=== PATIENT | female | born 1985 | race Caucasian/White ===

== ENCOUNTER 2017-04-16 12:26 | Emergency (ER) | payer OTHER ==
[2017-04-16 12:32] VITALS: BP 153/94; PULSE 69; RESP 18; TEMP 97.8
--- NOTE | 2017-04-16 12:45 | ED ---
General Adult HPI - General Chief complaint: Extremity Injury, Upper Stated complaint: Injury Time Seen by Provider: 04/16/17 12:35 Source: patient, RN notes reviewed Mode of arrival: ambulatory Limitations: no limitations - History of Present Illness Initial comments: Patient 31-year-old female who presents emergency room today with multiple complaints. Patient does admit that she has been experiencing some neck pain rated on the left side radiating towards left shoulder over the last week. She states she woke up like this. States she's been trying Tylenol/ibuprofen with little relief the symptoms. She also admits that she has noticed that her blood pressure is been somewhat elevated ranging from systolic of 1:30 to 140 with a diastolic in the 90s. Patient does also admit that she's noticed her heart beat has been low at times and she has been bradycardic down into the 40s. States this is new for her. She denies any lightheadedness or dizziness. She denies any other complaints or associated symptoms. Patient does admit that the neck pain is worse with movements but denies any injury or trauma. Patient denies any recent fever, chills, shortness of breath, chest pain, back pain, abdominal pain, nausea or vomiting, numbness or tingling, dysuria or hematuria, constipation or diarrhea, headaches or visual changes, or any other complaints. - Related Data Home Medications Medication Instructions Recorded Confirmed Omp-Tzzs-Gaatu Acid 1 tab PO DAILY 09/25/14 12/09/15 [-U Capsule] Sertraline HCl [Zoloft] 100 mg PO DAILY 09/25/14 12/09/15 Acetaminophen [Tylenol] 325 mg PO Q4H 12/08/15 12/09/15 Previous Rx's Medication Instructions Recorded Cyclobenzaprine [Flexeril] 10 mg PO TID #20 tab 04/16/17 Allergies Allergy/AdvReac Type Severity Reaction Status Date / Time rizatriptan benzoate Allergy Unknown Verified 04/16/17 12:32 [From [facility]] Review of Systems ROS Statement: Those systems with pertinent positive or pertinent negative responses have been documented in the HPI. ROS Other: All systems not noted in ROS Statement are negative. Past Medical History Past Medical History: No Reported History Additional Past Medical History / Comment(s): depression History of Any Multi-Drug Resistant Organisms: None Reported Past Surgical History: No Surgical Hx Reported Additional Past Surgical History / Comment(s): LEEP procedure Past Anesthesia/Blood Transfusion Reactions: No Reported Reaction Past Psychological History: Anxiety, Depression, Panic Disorder Smoking Status: Never smoker Past Alcohol Use History: Occasional Past Drug Use History: None Reported General Exam - General Exam Comments Initial Comments: General: The patient is awake and alert, in no distress, and does not appear acutely ill. Eye: Pupils are equal, round and reactive to light, extra-ocular movements are intact. No nystagmus. There is normal conjunctiva bilaterally. No signs of icterus. Ears, nose, mouth and throat: There are moist mucous membranes and no oral lesions. Neck: The neck is supple. Patient does have some tenderness of cervical spine no step-offs forms appreciated. Mild tenderness midline with increased tenderness paravertebrally on the left and over the sternocleidomastoid. Pain reproduced with rotation to the left exacerbating her pain. No bony tenderness to the left shoulder. Mild tenderness to the trapezius. Cardiovascular: There is a regular rate and rhythm. No murmur, rub or gallop is appreciated. Respiratory: Lungs are clear to auscultation, respirations are non-labored, breath sounds are equal. No wheezes, stridor, rales, or rhonchi. Musculoskeletal: Normal ROM, no tenderness. Strength 5/5. Sensation intact. Pulses equal bilaterally 2+. Neurological: A&O x 3. CN II-XII intact, There are no obvious motor or sensory deficits. Coordination appears grossly intact. Speech is normal. Skin: Skin is warm and dry and no rashes or lesions are noted. Psychiatric: Cooperative, appropriate mood & affect, normal judgment. Limitations: no limitations Course Vital Signs 04/16/17 12:29 Temperature 97.8 F Pulse Rate 69 Respiratory 18 Rate Blood Pressure 153/94 O2 Sat by Pulse 100 Oximetry EKG Findings - EKG Comments: EKG Findings:: EKG performed at 1244: Shows sinus bradycardia 58 bpm. KS interval 142. QRS 82. QT/QTc 406/398. No acute ST changes. Medical Decision Making - Medical Decision Making Case discussed in detail with attending physician Dr. De Dios. Patient reexamined at this time shows no signs of distress. Patient's EKG reviewed and does show a normal sinus rhythm with bradycardia at 58 bpm. No other acute abnormalities. Patient advised to follow-up with family doctor and also cardiology. Advised patient that neck pain is musculoskeletal in nature to use ibuprofen/Tylenol for pain along with muscle relaxant. Advised patient that most indicated drowsy. Patient will be discharged home advised to follow-up with family doctor in the next 1-2 days. Advised return if any symptoms increase or worsen. She states understanding and is in agreement. Disposition Clinical Impression: Cervical strain, acute, Bradycardia Disposition: HOME SELF-CARE Condition: Good Instructions: Spasmodic Torticollis (ED) Additional Instructions: Please to new Tylenol/ibuprofen for pain. Please use muscle laxer as prescribed. Rather may make you drowsy. Please follow-up with cardiology/ family doctor in the next 2 days of symptoms have not improved. Please return to emergency room if the symptoms increase or worsen or for any other concerns. Prescriptions: Cyclobenzaprine [Flexeril] 10 mg PO TID #20 tab Referrals: Lanre Morgan DO [Primary Care Provider] - 1-2 days Time of Disposition: 12:57
== END 2017-04-16 13:00 | disposition home or self-care (01) ==
LOC: EC 12:26
DX: S16.1XXA Strain of muscle, fascia and tendon at neck level, initial encounter (principal); R00.1 Bradycardia, unspecified; F32.9 Major depressive disorder, single episode, unspecified; Z88.8 Allergy status to other drugs, medicaments and biological substances; Z79.899 Other long term (current) drug therapy; X58.XXXA Exposure to other specified factors, initial encounter
CPT/HCPCS: 93005; 99283

== ENCOUNTER → 2017-04-18 | Outpatient (CLI) | payer OTHER ==
--- NOTE | 2017-04-19 12:02 | XR ---
Cervical spine HISTORY: Neck pain 5 views of the cervical spine Correlation to prior exam 07/11/2012 There is reversal the normal cervical lordosis. Cervical vertebral bodies show preserved height, alig nment, and bone mineralization. Disc spaces and prevertebral soft tissues are normal. No significant foraminal encroachment. IMPRESSION: Reversal of cervical lordosis could be due to muscle spasm.
== END ==
LOC: RADXRMAIN 17:18
PROVIDERS: ATTEND Family Medicine
DX: M54.2 Cervicalgia (principal)
CPT/HCPCS: 72050

== ENCOUNTER → 2018-05-24 | Outpatient (CLI) | payer OTHER | END | disposition home or self-care (01) | LOC: LABMAIN 22:15 | PROVIDERS: ATTEND Family Medicine | DX: R19.7 Diarrhea, unspecified (principal) | CPT/HCPCS: 87045; 87046; 87324; 87328; 87329 ==

== ENCOUNTER → 2018-09-16 | Outpatient (CLI) | payer OTHER ==
--- NOTE | 2018-09-17 14:00 | XR ---
Bilateral knees HISTORY: Pain 4 views of each knee submitted on a total of 8 images Joint space loss present in the medial compartments. Alignment and bone mineralization are maintained . IMPRESSION: Mild osteoarthritis is suspected, MRI may be of benefit.
--- NOTE | 2018-09-17 17:12 | MR ---
EXAMINATION TYPE: MR brain wo/w con DATE OF EXAM: 09/16/2018 COMPARISON: CT brain 08/23/2018 HISTORY: Dizziness, F/U on pineal cyst TECHNIQUE: Multiplanar, multisequence images of the brain and brainstem is performed without and with IV contras t, utilizing 7.5 mL intravenous Gadavist . FINDINGS: Diffusion weighted images demonstrate no evidence of a recent infarct or other diffusion ab normality. There is no extra-axial fluid collection or significant white matter signal abnormality. The ventricular system and cisternal spaces are normal in size and appearance. The brain volume is age appropriate. Midline structures demonstrate normal morphology with exception of patient's known pineal cyst measur ing approximately 13 x 11 x 7 mm. In some minimal peripheral enhancement, central intermediate signal on T1, high signal on T2 and inversion recovery sequences within the cyst.. The craniocervical junc tion appears within normal limits. Post contrast images demonstrate no abnormal enhancement. The dur al venous sinuses appear patent. The visualized sinuses are clear and the globes are intact. 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
== END | disposition home or self-care (01) ==
LOC: RADMRIMAIN 13:43
PROVIDERS: ATTEND Family Medicine
DX: D35.4 Benign neoplasm of pineal gland (principal); M25.561 Pain in right knee; M25.562 Pain in left knee
CPT/HCPCS: 73560; 70553; A9585

== ENCOUNTER → 2019-09-25 | Outpatient (CLI) | payer OTHER ==
[2019-09-25 11:05] LABS: Basophils # (A) 0.1 k/uL (0-0.2); Basophils % (A) 2 %; Eosinophils # (A) 0.2 k/uL (0-0.7); Eosinophils % (A) 3 %; HCT 40.5 % (34.0-46.0); HGB 13.4 gm/dL (11.4-16.0); Lymphocytes # (A) 2.2 k/uL (1.0-4.8); Lymphocytes % (A) 31 %; MCH 29.8 pg (25.0-35.0); MCV 90.4 fL (80.0-100.0); Mean Platelet Volume 7.2; Monocytes # (A) 0.4 k/uL (0-1.0); Monocytes % (A) 6 %; Neutrophils % (A) 56 %; Platelet Count 281 k/uL (150-450); RBC 4.48 m/uL (3.80-5.40); RDW 12.3 % (11.5-15.5); WBC 7.1 k/uL (3.8-10.6)
--- NOTE | 2019-09-25 13:43 | XR ---
EXAMINATION TYPE: XR chest 2V DATE OF EXAM: 09/25/2019 COMPARISON: Prior chest x-ray 09/25/2014 HISTORY: J 18.9 TECHNIQUE: Frontal and lateral views of the chest are obtained. FINDINGS: There is no focal air space opacity, pleural effusion, or pneumothorax seen. The cardiac silhouette size is within normal limits. The osseous structures are intact. IMPRESSION: No acute cardiopulmonary process.
[2019-09-25 17:08] LABS: African American GFR (CKD) 131.9 (60.0-200.0); Albumin 4.1 g/dL (3.80-4.90); Albumin/Globulin Ratio 2.28 (1.60-3.17); Anion Gap 6.7 mmol/L (4.00-12.00); BUN/Creat Ratio 24.29 Ratio (12.00-20.00); Carbon Dioxide 26.3 mmol/L (21.6-31.8); Chol/HDL Ratio 3.19; Globulin 1.8 g/dL (1.6-3.3); LDL Cholesterol,Calculated 77.6 mg/dL (0.0-131.0); Non-African American GFR(CKD) 113.8 (60.0-200.0); Potassium 4.3 mmol/L (3.5-5.5); Total Bilirubin 0.2 mg/dL (0.2-1.2); Total Protein 5.9 g/dL (6.2-8.2); VLDL Calculation 14.4 mg/dL (5.00-40.00)
== END | disposition home or self-care (01) ==
LOC: LABWHC1 09:50
PROVIDERS: ATTEND Family Medicine
DX: Z00.00 Encounter for general adult medical examination without abnormal findings (principal); J18.9 Pneumonia, unspecified organism
CPT/HCPCS: 36415; 71046; 80053; 80061; 85025

== ENCOUNTER 2019-10-02 12:05 | Emergency (ER) | payer OTHER ==
[2019-10-02 12:10] VITALS: TEMP 98
[2019-10-02] MEDS ORDERED: SODIUM CHLORIDE 0.9% 500 ML 500 ML IV ONE (12:22)
--- NOTE | 2019-10-02 12:41 | ED ---
General Adult HPI - General Chief complaint: Recheck/Abnormal Lab/Rx Stated complaint: elevate BP Time Seen by Provider: 10/02/19 12:11 Source: patient, RN notes reviewed, old records reviewed Mode of arrival: ambulatory Limitations: no limitations - History of Present Illness Initial comments: 34-year-old female presents for evaluation of hypertension. Patient has been using a home blood pressure cuff to monitor her blood pressure over the past week. She's had some readings in the 140s systolic and 90s diastolic. She' went to her primary care office today to have a formal blood pressure measurement. She was told that it was also somewhat elevated and that she should seek medical attention at the emergency department. She was not seen by a provider at the office. She denies headache. Denies focal numbness or weakness. Denies central radiating chest pain. She's had a vague minimal left upper chest pain for many months, and his had intermittent chest pain for years she's had a stress test in 2013 and she is scheduled for a stress test on of this week. Denies diaphoresis. Denies abdominal pain. No fever. - Related Data Home Medications Medication Instructions Recorded Confirmed Aspirin/Acetaminophen/Caffeine 2 tab PO BID PRN 08/23/18 08/23/18 [Excedrin Migraine Caplet] Dextroamphetamine/Amphetamine 30 mg PO DAILY 08/23/18 08/23/18 [Adderall] Fesoterodine Fumarate [Toviaz] 4 mg PO DAILY 08/23/18 08/23/18 LORazepam [Ativan] 0.5 mg PO TID PRN 08/23/18 08/23/18 Phenazopyridine 97.5 mg PO DAILY PRN 08/23/18 08/23/18 Allergies Allergy/AdvReac Type Severity Reaction Status Date / Time rizatriptan benzoate AdvReac AGGRESSIVE Verified 08/23/18 09:11 [From [facility]] Review of Systems ROS Statement: Those systems with pertinent positive or pertinent negative responses have been documented in the HPI. ROS Other: All systems not noted in ROS Statement are negative. Past Medical History Past Medical History: No Reported History Additional Past Medical History / Comment(s): depression History of Any Multi-Drug Resistant Organisms: None Reported Past Surgical History: Tubal Ligation Additional Past Surgical History / Comment(s): LEEP procedure Past Anesthesia/Blood Transfusion Reactions: No Reported Reaction Past Psychological History: Anxiety, Depression, Panic Disorder Smoking Status: Former smoker Past Alcohol Use History: Occasional Past Drug Use History: Marijuana General Exam Limitations: no limitations General appearance: alert, in no apparent distress Head exam: Present: atraumatic, normocephalic Eye exam: Present: normal appearance, PERRL ENT exam: Present: normal exam Neck exam: Present: normal inspection. Absent: tenderness, meningismus Respiratory exam: Present: normal lung sounds bilaterally. Absent: respiratory distress, wheezes, rales Cardiovascular Exam: Present: regular rate, normal rhythm GI/Abdominal exam: Present: soft. Absent: distended, tenderness, guarding Extremities exam: Present: normal inspection, normal capillary refill. Absent: pedal edema Back exam: Present: normal inspection Neurological exam: Present: alert, oriented X3, CN II-XII intact. Absent: motor sensory deficit Psychiatric exam: Present: normal affect, normal mood Skin exam: Present: warm, dry, intact. Absent: cyanosis, diaphoretic Course Vital Signs 10/02/19 10/02/19 10/02/19 12:07 12:33 13:35 Temperature 98.0 F Pulse Rate 89 85 Pulse Rate [ 80 Atmospheric Physicist ] Respiratory 18 16 Rate Blood Pressure 156/96 127/95 O2 Sat by Pulse 98 98 Oximetry EKG Findings - EKG Comments: EKG Findings:: EKG: Normal sinus rhythm, rate of 82, W[place] interval 150, QRS duration 82, QTC 399, no ST segment elevation or depression Medical Decision Making - Medical Decision Making 34-year-old female presenting with elevated blood pressure. Initial blood pressure is elevated. Patient has a vague left-sided chest discomfort not really chest pain. His been present for at least a week and intermittently for several years. She has a scheduled outpatient appointment for stress test on of this week. Blood pressure is down trending without treatment in the emergency department. She will continue to monitor blood pressure at home she will follow-up with her primary care physician regarding long-term treatment of hypertension. CBC, CMP, troponin are within normal limits. - Lab Data Result diagrams: 10/02/19 12:35 10/02/19 12:35 Lab Results 10/02/19 10/02/19 10/02/19 Range/Units 12:35 12:35 12:35 WBC 7.6 (3.8-10.6) k/uL RBC 4.75 (3.80-5.40) m/uL Hgb 14.3 (11.4-16.0) gm/dL Hct 41.3 (34.0-46.0) % MCV 86.9 (80.0-100.0) fL MCH 30.0 (25.0-35.0) pg MCHC 34.5 (31.0-37.0) g/dL RDW 12.7 (11.5-15.5) % Plt Count 316 (150-450) k/uL Neutrophils % 53 % Lymphocytes % 37 % Monocytes % 5 % Eosinophils % 2 % Basophils % 1 % Neutrophils # 4.0 (1.3-7.7) k/uL Lymphocytes # 2.8 (1.0-4.8) k/uL Monocytes # 0.4 (0-1.0) k/uL Eosinophils # 0.2 (0-0.7) k/uL Basophils # 0.0 (0-0.2) k/uL Sodium 140 (137-145) mmol/L Potassium 4.1 (3.5-5.1) mmol/L Chloride 106 (98-107) mmol/L Carbon Dioxide 25 (22-30) mmol/L Anion Gap 9 mmol/L BUN 13 (7-17) mg/dL Creatinine 0.62 (0.52-1.04) mg/dL Est GFR (CKD-EPI)AfAm >90 (>60 ml/min/1.73 sqM) Est GFR (CKD-EPI)NonAf >90 (>60 ml/min/1.73 sqM) Glucose 90 (74-99) mg/dL Calcium 10.0 (8.4-10.2) mg/dL Total Bilirubin 0.3 (0.2-1.3) mg/dL AST 35 (14-36) U/L ALT 27 (4-34) U/L Alkaline Phosphatase 75 (38-126) U/L Troponin I (0.000-0.034) ng/mL Total Protein 7.1 (6.3-8.2) g/dL Albumin 4.2 (3.5-5.0) g/dL Urine HCG, Qual Not Detected (Not Detectd) 10/02/19 Range/Units 12:35 WBC (3.8-10.6) k/uL RBC (3.80-5.40) m/uL Hgb (11.4-16.0) gm/dL Hct (34.0-46.0) % MCV (80.0-100.0) fL MCH (25.0-35.0) pg MCHC (31.0-37.0) g/dL RDW (11.5-15.5) % Plt Count (150-450) k/uL Neutrophils % % Lymphocytes % % Monocytes % % Eosinophils % % Basophils % % Neutrophils # (1.3-7.7) k/uL Lymphocytes # (1.0-4.8) k/uL Monocytes # (0-1.0) k/uL Eosinophils # (0-0.7) k/uL Basophils # (0-0.2) k/uL Sodium (137-145) mmol/L Potassium (3.5-5.1) mmol/L Chloride (98-107) mmol/L Carbon Dioxide (22-30) mmol/L Anion Gap mmol/L BUN (7-17) mg/dL Creatinine (0.52-1.04) mg/dL Est GFR (CKD-EPI)AfAm (>60 ml/min/1.73 sqM) Est GFR (CKD-EPI)NonAf (>60 ml/min/1.73 sqM) Glucose (74-99) mg/dL Calcium (8.4-10.2) mg/dL Total Bilirubin (0.2-1.3) mg/dL AST (14-36) U/L ALT (4-34) U/L Alkaline Phosphatase (38-126) U/L Troponin I <0.012 (0.000-0.034) ng/mL Total Protein (6.3-8.2) g/dL Albumin (3.5-5.0) g/dL Urine HCG, Qual (Not Detectd) Disposition Clinical Impression: Hypertension Disposition: HOME SELF-CARE Condition: Good Instructions (If sedation given, give patient instructions): Hypertension (ED) Is patient prescribed a controlled substance at d/c from ED?: No Referrals: Neeraj Rausch MD [Primary Care Provider] - 1-2 days Time of Disposition: 13:52
[2019-10-02 13:06] LABS: Basophils % (A) 1 %; Eosinophils # (A) 0.2 k/uL (0-0.7); Eosinophils % (A) 2 %; HCT 41.3 % (34.0-46.0); HGB 14.3 gm/dL (11.4-16.0); Lymphocytes # (A) 2.8 k/uL (1.0-4.8); Lymphocytes % (A) 37 %; MCHC 34.5 g/dL (31.0-37.0); MCV 86.9 fL (80.0-100.0); Mean Platelet Volume 7.5; Monocytes # (A) 0.4 k/uL (0-1.0); Monocytes % (A) 5 %; Neutrophils % (A) 53 %; Platelet Count 316 k/uL (150-450); RBC 4.75 m/uL (3.80-5.40); RDW 12.7 % (11.5-15.5); WBC 7.6 k/uL (3.8-10.6)
[2019-10-02 13:08] LABS: ALT 27 U/L (4-34); AST 35 U/L (14-36); African American GFR (CKD) >90 (>60 ml/min/1.73 sqM); Albumin 4.2 g/dL (3.5-5.0); Alkaline Phosphatase 75 U/L (38-126); Anion Gap 9 mmol/L; Blood Urea Nitrogen 13 mg/dL (7-17); Carbon Dioxide 25 mmol/L (22-30); Chloride 106 mmol/L (98-107); Glucose 90 mg/dL (74-99); Non-African American GFR(CKD) >90 (>60 ml/min/1.73 sqM); Potassium 4.1 mmol/L (3.5-5.1); Sodium 140 mmol/L (137-145); Total Bilirubin 0.3 mg/dL (0.2-1.3); Total Protein 7.1 g/dL (6.3-8.2)
[2019-10-02 13:36] VITALS: RESP 16
[2019-10-02 14:25] VITALS: BP 127/88; PULSE 66
== END 2019-10-02 14:28 | disposition home or self-care (01) ==
LOC: EC 12:05
DX: I10 Essential (primary) hypertension (principal); R07.89 Other chest pain; F32.9 Major depressive disorder, single episode, unspecified; F41.9 Anxiety disorder, unspecified; Z79.899 Other long term (current) drug therapy; Z87.891 Personal history of nicotine dependence; Z88.8 Allergy status to other drugs, medicaments and biological substances
CPT/HCPCS: 36415; 80053; 81025; 84484; 85025; 93005; 96360; 96361; 99284

== ENCOUNTER → 2019-10-04 | Outpatient (CLI) | payer OTHER ==
--- NOTE | 2019-10-04 12:36 | ECHOS ---
STRESS ECHOCARDIOGRAM DATE OF SERVICE: 10/04/2019 INDICATIONS: Chest pain. MEDICATIONS: Adderall, Celexa, Ativan. BASELINE HEART RATE: 93 BASELINE BLOOD PRESSURE: 112/88 MAXIMUM HEART RATE: 193 MAXIMUM BLOOD PRESSURE: 144/65 85% MPHR: 159 100% MPHR: 187 METS: 10.3 MAXIMUM STAGE REACHED: III TOTAL EXERCISE TIME: 9 minutes CLINICAL INFORMATION: Baseline rhythm is sinus mechanism, rate of 93, right axis deviation, normal intervals. Baseline blood pressure 112/88 mmHg. Patient exercised on Venancio protocol for 9 minutes reaching peak rate of 193 beats per minute which is equal to 100% maximum predicted heart rate. Peak blood pressure 144/65 mmHg. Test was terminated secondary to fatigue. There was no chest pain. Electrocardiograph monitoring revealed no evidence of diagnostic ischemic ST deviation. Baseline echocardiogram revealed normal wall motion. At peak exercise, there was normal wall motion augmentation with no hypokinesis or dyskinesis. CONCLUSION: 1. Average exercise tolerance with normal electrocardiograph response to exercise. 2. Normal stress echocardiogram with no evidence of stress induced ischemia. MMODL / IJN: [id number] /
== END | disposition home or self-care (01) ==
LOC: RADNMMAIN 09:17
PROVIDERS: ATTEND Family Medicine
DX: R07.9 Chest pain, unspecified (principal)
CPT/HCPCS: 93351

== ENCOUNTER 2020-09-23 16:50 | Emergency (ER) | payer OTHER ==
[2020-09-23 17:10] LABS: Glucose,Whole Blood 111 mg/dL (75-99)
[2020-09-23] MEDS ORDERED: SODIUM CHLORIDE 0.9% 1,000 ML IV STA (17:44)
[2020-09-23 17:56] LABS: Basophils # (A) 0.1 k/uL (0-0.2); Basophils % (A) 2 %; Eosinophils # (A) 0.2 k/uL (0-0.7); Eosinophils % (A) 3 %; HCT 43.5 % (34.0-46.0); HGB 14.8 gm/dL (11.4-16.0); Lymphocytes % (A) 26 %; MCH 30.6 pg (25.0-35.0); MCHC 33.9 g/dL (31.0-37.0); MCV 90.4 fL (80.0-100.0); Mean Platelet Volume 7.7; Monocytes # (A) 0.4 k/uL (0-1.0); Monocytes % (A) 6 %; Neutrophils # (A) 4.8 k/uL (1.3-7.7); Neutrophils % (A) 63 %; Platelet Count 320 k/uL (150-450); RBC 4.82 m/uL (3.80-5.40); RDW 12.2 % (11.5-15.5); WBC 7.6 k/uL (3.8-10.6)
[2020-09-23 18:05] LABS: ALT 18 U/L (4-34); AST 23 U/L (14-36); African American GFR (CKD) >90 (>60 ml/min/1.73 sqM); Alkaline Phosphatase 79 U/L (38-126); Anion Gap 6 mmol/L; Blood Urea Nitrogen 16 mg/dL (7-17); Calcium 9.8 mg/dL (8.4-10.2); Carbon Dioxide 25 mmol/L (22-30); Chloride 107 mmol/L (98-107); Glucose 93 mg/dL (74-99); Non-African American GFR(CKD) >90 (>60 ml/min/1.73 sqM); Potassium 4.3 mmol/L (3.5-5.1); Sodium 138 mmol/L (137-145); Total Bilirubin 0.2 mg/dL (0.2-1.3); Total Protein 6.9 g/dL (6.3-8.2)
[2020-09-23 18:06] LABS: INR 0.9 (<1.2); Partial Thromboplastin Time 25.8 sec (22.0-30.0); Prothrombin Time 9.9 sec (9.0-12.0)
--- NOTE | 2020-09-23 18:07 | XR ---
EXAMINATION TYPE: XR chest 2V DATE OF EXAM: 09/23/2020 COMPARISON: X-ray September 25, 2019. HISTORY: Right-sided numbness. TECHNIQUE: Frontal and lateral views of the chest are obtained. FINDINGS: There is no focal air space opacity, pleural effusion, or pneumothorax seen. The cardiac silhouette size remains within normal limits. The osseous structures are intact. Overlying EKG lead s on current study. IMPRESSION: No acute cardiopulmonary process. No significant change from prior.
--- NOTE | 2020-09-23 18:08 | CT ---
EXAMINATION TYPE: CT brain wo con for TPA DATE OF EXAM: 09/23/2020 COMPARISON: CT brain August 23, 2018 HISTORY: Left side numbness CT DLP: 1143.4 mGycm. Automated Exposure Control for Dose Reduction was Utilized. TECHNIQUE: CT scan of the head is performed without contrast. FINDINGS: There is no acute intracranial hemorrhage, mass effect, or midline shift identified. The ventricles and sulci are within normal limits in size. Hidalgo-white matter differentiation is maintain ed. The globes are intact and the visualized sinuses are clear. IMPRESSION: No acute intracranial hemorrhage or midline shift is seen. No significant change from pr ior.
[2020-09-23] MEDS ORDERED: ASPIRIN 81 MG PO STA (18:30)
--- NOTE | 2020-09-23 18:30 | ED ---
General Adult HPI - General Chief complaint: Neuro Symptoms/Deficit Stated complaint: numbness in tongue, rt sided tingling Time Seen by Provider: 09/23/20 17:33 Source: patient, RN notes reviewed, old records reviewed Mode of arrival: ambulatory Limitations: no limitations - History of Present Illness Initial comments: Pt is a 35 year old female presents returns today with onset of tingling on the right side of the face reports diminished sensation of the right face. She states she also had some abnormal tingling sensation on the right arm, symptoms starting at 345 this afternoon. She reports that she had an episode similar to this yesterday but about the left side of her face. Then shortly resolved. She presents her emergency room stay with her mother and states that there is a significant family history of strokes and heart attacks. She denies any chest pain at this time. She does report a low headache pretty a 4 out of 10. - Related Data Home Medications Medication Instructions Recorded Confirmed Aspirin/Acetaminophen/Caffeine 2 tab PO BID PRN 08/23/18 08/23/18 [Excedrin Migraine Caplet] Dextroamphetamine/Amphetamine 30 mg PO DAILY 08/23/18 08/23/18 [Adderall] Fesoterodine Fumarate [Toviaz] 4 mg PO DAILY 08/23/18 08/23/18 LORazepam [Ativan] 0.5 mg PO TID PRN 08/23/18 08/23/18 Phenazopyridine 97.5 mg PO DAILY PRN 08/23/18 08/23/18 Allergies Allergy/AdvReac Type Severity Reaction Status Date / Time rizatriptan benzoate AdvReac AGGRESSIVE Verified 09/23/20 16:58 [From [facility]] Review of Systems ROS Statement: Those systems with pertinent positive or pertinent negative responses have been documented in the HPI. ROS Other: All systems not noted in ROS Statement are negative. Past Medical History Past Medical History: No Reported History Additional Past Medical History / Comment(s): depression History of Any Multi-Drug Resistant Organisms: None Reported Past Surgical History: Tubal Ligation Additional Past Surgical History / Comment(s): LEEP procedure Past Anesthesia/Blood Transfusion Reactions: No Reported Reaction Past Psychological History: Anxiety, Depression, Panic Disorder Smoking Status: Current every day smoker Past Alcohol Use History: Occasional Past Drug Use History: Marijuana General Exam - General Exam Comments Initial Comments: 35-year-old female. No acute distress. Limitations: no limitations General appearance: alert, in no apparent distress Head exam: Present: atraumatic, normocephalic, normal inspection Eye exam: Present: normal appearance, PERRL, EOMI. Absent: scleral icterus, conjunctival injection, periorbital swelling ENT exam: Present: normal exam, mucous membranes moist Neck exam: Present: normal inspection. Absent: tenderness, meningismus, lymphadenopathy Respiratory exam: Present: normal lung sounds bilaterally. Absent: respiratory distress, wheezes, rales, rhonchi, stridor Cardiovascular Exam: Present: regular rate, normal rhythm, normal heart sounds. Absent: systolic murmur, diastolic murmur, rubs, gallop, clicks GI/Abdominal exam: Present: soft, normal bowel sounds. Absent: distended, tenderness, guarding, rebound, rigid Extremities exam: Present: normal inspection, full ROM, normal capillary refill. Absent: tenderness, pedal edema, joint swelling, calf tenderness Back exam: Present: normal inspection Neurological exam: Present: alert, oriented X3, CN II-XII intact, normal gait Expanded Patient oriented to: Present: person, place, time Speech: Present: fluid speech Cranial nerves: EOM's Intact: Normal, Gag Reflex: Normal, Tongue Deviation: Normal, Facial Sensation: Abnormal Right (Patient reports diminished sensation to light touch over the right side of her face.) Cerebellar function: Finger to Nose: Normal Upper motor neuron: Pronator Drift: Normal Sensory exam: Upper Extremity Light Touch: Normal, Lower Extremity Light Touch: Normal Motor strength exam: RUE: 5, LUE: 5, RLE: 5, LLE: 5 Eye Response: (4) open spontaneously Motor Response: (6) obeys commands Verbal Response: (5) oriented Manuel Total: 15 Psychiatric exam: Present: normal affect, normal mood Skin exam: Present: warm, dry, intact, normal color. Absent: rash Course Vital Signs 09/23/20 09/23/20 09/23/20 16:54 19:00 19:10 Temperature 97.9 F Pulse Rate 81 51 L 57 L Respiratory 16 18 18 Rate Blood Pressure 135/97 123/91 122/82 O2 Sat by Pulse 100 100 100 Oximetry 09/23/20 09/23/20 09/23/20 19:20 19:30 20:00 Temperature 98.0 F Pulse Rate 56 L 60 61 Respiratory 18 18 18 Rate Blood Pressure 123/95 123/95 125/91 O2 Sat by Pulse 100 100 100 Oximetry Medical Decision Making - Medical Decision Making Referral female presents with concerns for right-sided facial paresthesias. She had history of left-sided paresthesias that happened yesterday. She reports that under stress. She does complain of a headache. Discussed concern for possible migraine versus TIA or strokelike symptoms. Vital signs are stable. EKG is reviewed and normal. She has no signs of facial paralysis. And does report slight paresthesias of the right side of the face. She is given migraine cocktail and CT of the brain. The CT shows no acute process. Migraine cocktail didn't improve patient's symptoms. On reevaluation blood pressure is also continue to improve slightly. I did advise Patient to follow-up with PCP. Discussed the case with Dr. Duckworth. - Lab Data Result diagrams: 09/23/20 17:15 09/23/20 17:15 Lab Results 09/23/20 09/23/20 09/23/20 Range/Units 16:59 17:15 17:15 WBC 7.6 (3.8-10.6) k/uL RBC 4.82 (3.80-5.40) m/uL Hgb 14.8 (11.4-16.0) gm/dL Hct 43.5 (34.0-46.0) % MCV 90.4 (80.0-100.0) fL MCH 30.6 (25.0-35.0) pg MCHC 33.9 (31.0-37.0) g/dL RDW 12.2 (11.5-15.5) % Plt Count 320 (150-450) k/uL MPV 7.7 Neutrophils % 63 % Lymphocytes % 26 % Monocytes % 6 % Eosinophils % 3 % Basophils % 2 % Neutrophils # 4.8 (1.3-7.7) k/uL Lymphocytes # 2.0 (1.0-4.8) k/uL Monocytes # 0.4 (0-1.0) k/uL Eosinophils # 0.2 (0-0.7) k/uL Basophils # 0.1 (0-0.2) k/uL PT 9.9 (9.0-12.0) sec INR 0.9 (<1.2) APTT 25.8 (22.0-30.0) sec Sodium (137-145) mmol/L Potassium (3.5-5.1) mmol/L Chloride (98-107) mmol/L Carbon Dioxide (22-30) mmol/L Anion Gap mmol/L BUN (7-17) mg/dL Creatinine (0.52-1.04) mg/dL Est GFR (CKD-EPI)AfAm (>60 ml/min/1.73 sqM) Est GFR (CKD-EPI)NonAf (>60 ml/min/1.73 sqM) Glucose (74-99) mg/dL POC Glucose (mg/dL) 111 H (75-99) mg/dL POC Glu Manager Costing ID Mansoro Mora Calcium (8.4-10.2) mg/dL Total Bilirubin (0.2-1.3) mg/dL AST (14-36) U/L ALT (4-34) U/L Alkaline Phosphatase (38-126) U/L Troponin I (0.000-0.034) ng/mL Total Protein (6.3-8.2) g/dL Albumin (3.5-5.0) g/dL 09/23/20 09/23/20 Range/Units 17:15 17:15 WBC (3.8-10.6) k/uL RBC (3.80-5.40) m/uL Hgb (11.4-16.0) gm/dL Hct (34.0-46.0) % MCV (80.0-100.0) fL MCH (25.0-35.0) pg MCHC (31.0-37.0) g/dL RDW (11.5-15.5) % Plt Count (150-450) k/uL MPV Neutrophils % % Lymphocytes % % Monocytes % % Eosinophils % % Basophils % % Neutrophils # (1.3-7.7) k/uL Lymphocytes # (1.0-4.8) k/uL Monocytes # (0-1.0) k/uL Eosinophils # (0-0.7) k/uL Basophils # (0-0.2) k/uL PT (9.0-12.0) sec INR (<1.2) APTT (22.0-30.0) sec Sodium 138 (137-145) mmol/L Potassium 4.3 (3.5-5.1) mmol/L Chloride 107 (98-107) mmol/L Carbon Dioxide 25 (22-30) mmol/L Anion Gap 6 mmol/L BUN 16 (7-17) mg/dL Creatinine 0.68 (0.52-1.04) mg/dL Est GFR (CKD-EPI)AfAm >90 (>60 ml/min/1.73 sqM) Est GFR (CKD-EPI)NonAf >90 (>60 ml/min/1.73 sqM) Glucose 93 (74-99) mg/dL POC Glucose (mg/dL) (75-99) mg/dL POC Glu Manager Costing ID Calcium 9.8 (8.4-10.2) mg/dL Total Bilirubin 0.2 (0.2-1.3) mg/dL AST 23 (14-36) U/L ALT 18 (4-34) U/L Alkaline Phosphatase 79 (38-126) U/L Troponin I <0.012 (0.000-0.034) ng/mL Total Protein 6.9 (6.3-8.2) g/dL Albumin 4.0 (3.5-5.0) g/dL 09/23/20 18:30 EKG shows normal sinus rhythm with sinus arrhythmia. Normal EKG. Ventricular rate 66 bpm. Verbal 142 ms. Respirations 82 ms. QT QTc is 382/400 ms. - Radiology Data Radiology results: report reviewed No acute intracranial hemorrhage or midline shift seen. No significant change from prior. CXR show No acute cardiopulmonary process. No significant change from prior. Disposition Clinical Impression: Headache, Paresthesia Disposition: HOME SELF-CARE Condition: Good Instructions (If sedation given, give patient instructions): Paresthesia (ED), Migraine Headache (ED) Additional Instructions: Patient should have regular monitoring of blood pressure and establish what it is doing morning after noontime and nighttime when at rest. Keep a log and follow with your primary care doctor. Return to emergency department if your blood pressure seems to be greater than 180/120 having symptoms of headaches or neurological deficits. Follow up with PCP this week and neurology. Is patient prescribed a controlled substance at d/c from ED?: No Referrals: Neeraj Rausch MD [Primary Care Provider] - 1-2 days Time of Disposition: 20:17
[2020-09-23] MEDS ORDERED: diphenhydrAMINE 50 MG/ML 1 ML VIAL IVP STA (18:52)
[2020-09-23] MEDS ORDERED: KETOROLAC 15 MG/ML 1 ML VIAL IVP STA (18:52)
[2020-09-23] MEDS ORDERED: METOCLOPRAMIDE 5 MG/ML 2 ML VIAL IVP STA (18:52)
[2020-09-23 19:27] VITALS: RESP 18
[2020-09-23 20:34] VITALS: BP 126/86; PULSE 62; TEMP 98
== END 2020-09-23 20:39 | disposition home or self-care (01) ==
LOC: EC 16:50
DX: R20.2 Paresthesia of skin (principal); R51.9 Headache, unspecified; F41.9 Anxiety disorder, unspecified; F32.9 Major depressive disorder, single episode, unspecified; F41.0 Panic disorder [episodic paroxysmal anxiety]; F17.200 Nicotine dependence, unspecified, uncomplicated; Z79.899 Other long term (current) drug therapy; Z88.8 Allergy status to other drugs, medicaments and biological substances; Z82.3 Family history of stroke; Z82.49 Family history of ischemic heart disease and other diseases of the circulatory system
CPT/HCPCS: 36415; 93005; 80053; 84484; 85025; 85610; 85730; 71046; 70450; 99285; 96374; 96375 ×2; 96361; J1200; J2765; J1885

== ENCOUNTER → 2020-10-28 | Outpatient (CLI) | payer OTHER ==
[2020-10-28 11:26] LABS: Basophils # (A) 0.1 k/uL (0-0.2); Basophils % (A) 1 %; Eosinophils # (A) 0.3 k/uL (0-0.7); Eosinophils % (A) 4 %; HCT 41.5 % (34.0-46.0); HGB 13.8 gm/dL (11.4-16.0); Lymphocytes # (A) 2.6 k/uL (1.0-4.8); Lymphocytes % (A) 35 %; MCH 30.6 pg (25.0-35.0); MCHC 33.3 g/dL (31.0-37.0); MCV 91.9 fL (80.0-100.0); Mean Platelet Volume 7.5; Monocytes # (A) 0.6 k/uL (0-1.0); Monocytes % (A) 8 %; Neutrophils # (A) 3.6 k/uL (1.3-7.7); Neutrophils % (A) 50 %; Platelet Count 302 k/uL (150-450); RBC 4.52 m/uL (3.80-5.40); RDW 12.4 % (11.5-15.5); WBC 7.3 k/uL (3.8-10.6)
[2020-10-28 14:31] LABS: African American GFR (CKD) 111.5 (60.0-200.0); Albumin 4.2 g/dL (3.80-4.90); Albumin/Globulin Ratio 2.1 (1.60-3.17); Anion Gap 5.9 mmol/L (4.00-12.00); BUN/Creat Ratio 23.75 Ratio (12.00-20.00); Calcium 9.1 mg/dL (8.7-10.3); Carbon Dioxide 27.1 mmol/L (21.6-31.8); Chol/HDL Ratio 3.85; Non-African American GFR(CKD) 96.2 (60.0-200.0); Potassium 4.5 mmol/L (3.5-5.5); Total Bilirubin 0.3 mg/dL (0.3-1.2); Total Protein 6.2 g/dL (6.2-8.2)
== END | disposition home or self-care (01) ==
LOC: LABWHC1 09:49
PROVIDERS: ATTEND Nurse Practitioner Family
DX: Z00.00 Encounter for general adult medical examination without abnormal findings (principal); Z11.59 Encounter for screening for other viral diseases
CPT/HCPCS: 36415; 80053; 80061; 84443; 85025; 86803

== ENCOUNTER 2021-09-01 21:38 | Emergency (ER) | payer OTHER ==
[2021-09-01 21:50] VITALS: BP 165/107; PULSE 111; RESP 22; TEMP 97.9
[2021-09-01] MEDS ORDERED: SODIUM CHLORIDE 0.9% 50 ML IVPB ONE (23:00)
[2021-09-01] MEDS ORDERED: BAMLANIVIMAB (EUA) 700 MG, ETESEVIMAB (EUA) 1,400 MG in SODIUM CHLORIDE 0.9% 50 ML IVPB ONE ×2 (23:00→23:45)
--- NOTE | 2021-09-01 23:19 | ED ---
URI HPI - General Chief Complaint: Upper Respiratory Infection Stated Complaint: Covid+,Wants antibody Time Seen by Provider: 09/01/21 21:57 Source: patient, RN notes reviewed Mode of arrival: ambulatory Limitations: no limitations - History of Present Illness Initial Comments: Patient is a 36-year-old female that presents to the emergency department co mplaining of being Covid positive wanting to monoclonal antibodies. Patient denied any symptoms at this time. She was otherwise well-appearing. She denied chest pain shortness breath headache nausea vomiting diarrhea constipation fever fatigue chills. - Related Data Home Medications Medication Instructions Recorded Confirmed Aspirin/Acetaminophen/Caffeine 2 tab PO BID PRN 08/23/18 09/01/21 [Excedrin Migraine Caplet] Dextroamphetamine/Amphetamine 30 mg PO DAILY 08/23/18 09/01/21 [Adderall] LORazepam [Ativan] 1 mg PO BID PRN 08/23/18 09/01/21 Acetaminophen Tab [Tylenol Tab] 1,000 mg PO Q6HR PRN 09/01/21 09/01/21 Albuterol Nebulized [Ventolin 2.5 mg INHALATION RT-QID PRN 09/01/21 09/01/21 Nebulized] Escitalopram [Lexapro] 10 mg PO DAILY 09/01/21 09/01/21 Ibuprofen [Motrin Ib] 800 mg PO Q8H PRN 09/01/21 09/01/21 Allergies Allergy/AdvReac Type Severity Reaction Status Date / Time rizatriptan benzoate AdvReac AGGRESSIVE Verified 09/01/21 23:06 [From [facility]] Review of Systems ROS Statement: Those systems with pertinent positive or pertinent negative responses have been documented in the HPI. ROS Other: All systems not noted in ROS Statement are negative. Past Medical History Past Medical History: No Reported History Additional Past Medical History / Comment(s): depression History of Any Multi-Drug Resistant Organisms: None Reported Past Surgical History: Tubal Ligation Additional Past Surgical History / Comment(s): LEEP procedure Past Anesthesia/Blood Transfusion Reactions: No Reported Reaction Past Psychological History: Anxiety, Depression, Panic Disorder Smoking Status: Current every day smoker Past Alcohol Use History: Occasional Past Drug Use History: Marijuana General Exam Limitations: no limitations General appearance: alert, in no apparent distress, obese Head exam: Present: atraumatic, normocephalic, normal inspection Eye exam: Present: normal appearance, PERRL, EOMI. Absent: scleral icterus, conjunctival injection, periorbital swelling ENT exam: Present: normal exam, mucous membranes moist Neck exam: Present: normal inspection. Absent: tenderness, meningismus, lymphadenopathy Respiratory exam: Present: normal lung sounds bilaterally. Absent: respiratory distress, wheezes, rales, rhonchi, stridor Cardiovascular Exam: Present: regular rate, normal rhythm, normal heart sounds. Absent: systolic murmur, diastolic murmur, rubs, gallop, clicks GI/Abdominal exam: Present: soft, normal bowel sounds. Absent: distended, tenderness, guarding, rebound, rigid Extremities exam: Present: normal inspection, full ROM, normal capillary refill. Absent: tenderness, pedal edema, joint swelling, calf tenderness Neurological exam: Present: alert, oriented X3 Psychiatric exam: Present: normal affect, normal mood Skin exam: Present: warm, dry, intact, normal color. Absent: rash Course Vital Signs 09/01/21 21:46 Temperature 97.9 F Pulse Rate 111 H Respiratory 22 Rate Blood Pressure 165/107 O2 Sat by Pulse 99 Oximetry Medical Decision Making - Medical Decision Making Patient is a 36-year-old female Covid-positive requesting monoclonal antibodies. Patient does meet criteria for monoclonal antibodies. Patient wishes to undergo monoclonal antibody infusion and is agreeable with discharge home Case discussed with Dr. Olivier, patient can discharge home. Disposition Clinical Impression: COVID Disposition: HOME SELF-CARE Condition: Stable Instructions (If sedation given, give patient instructions): Coronavirus Disease 2019 (COVID-19) Additional Instructions: Please return to the Emergency Department if symptoms worsen or any other concerns. Is patient prescribed a controlled substance at d/c from ED?: No Referrals: Lanre Morgan DO [Primary Care Provider] - 1-2 days Time of Disposition: 23:19
== END 2021-09-02 01:20 | disposition home or self-care (01) ==
LOC: EC 21:38
DX: U07.1 COVID-19 (principal); F32.A Depression, unspecified; F41.9 Anxiety disorder, unspecified; E66.9 Obesity, unspecified; F17.200 Nicotine dependence, unspecified, uncomplicated; F12.90 Cannabis use, unspecified, uncomplicated; Z79.899 Other long term (current) drug therapy; Z68.37 Body mass index [BMI] 37.0-37.9, adult; Z79.82 Long term (current) use of aspirin; Z79.1 Long term (current) use of non-steroidal anti-inflammatories (NSAID)
CPT/HCPCS: 99283; J3490

== ENCOUNTER → 2022-03-17 | Outpatient (CLI) | payer OTHER ==
--- NOTE | 2022-03-18 12:16 | US ---
EXAMINATION TYPE: US carotid duplex BILAT DATE OF EXAM: 03/17/2022 COMPARISON: CTa CLINICAL HISTORY: SYNCOPE R55. Syncope. Hx hypertension, previous smoker. EXAM MEASUREMENTS: RIGHT: Peak Systolic Velocity (PSV) cm/sec ----- Right CCA: 74.2 ----- Right ICA: 81.8 ----- Right ECA: 86.0 ICA/CCA ratio: 1.10 RIGHT: End Diastole cm/sec ----- Right CCA: 20.2 ----- Right ICA: 27.7 ----- Right ECA: 9.4 LEFT: Peak Systolic Velocity (PSV) cm/sec ----- Left CCA: 85.5 ----- Left ICA: 117 ----- Left ECA: 98.5 ICA/CCA ratio: 1.37 LEFT: End Diastole cm/sec ----- Left CCA: 19.7 ----- Left ICA: 32.8 ----- Left ECA: 11.4 VERTEBRALS (direction of flow): Right Vertebral: Antegrade Left Vertebral: Antegrade Rhythm: Normal No elevated velocities at this time. Some intimal thickening seen bilaterally. IMPRESSION: 1. Intimal thickening without significant flow-limiting stenosis. Criteria for Assigning % of Stenosis / Diameter reduction (Estimation based on the indirect measurements of the internal carotid artery velocities (ICA PSV). 1. Normal (no stenosis)=ICA PSV < 125 cm/s: ratio < 2.0: ICA EDV<40 cm/s. 2. Less than 50% stenosis=ICA PSV < 125 cm/s: ratio < 2.0: ICA EDV<40 cm/s. 3. 50 to 69% stenosis=ICA PSV of 125 to 230 cm/s: ration 2.0 ? 4.0: ICA EDV 40-100 cm/s. 4. Greater than 70% stenosis to near occlusion= ICA PSV > 230 cm/s: ratio > 4.0: ICA EDV > 100 cm/s. 5. Near occlusion= ICA PSV velocities may be low or undetectable: variable ratio and ICA EDV. 6. Total occlusion=unable to detect flow.
== END | disposition home or self-care (01) ==
LOC: RADUSWWP 15:35
PROVIDERS: ATTEND Family Medicine
DX: Z53.9 Procedure and treatment not carried out, unspecified reason (principal)
CPT/HCPCS: 93880

== ENCOUNTER → 2022-03-19 | Outpatient (CLI) | payer OTHER ==
--- NOTE | 2022-03-19 15:58 | EEG ---
ELECTROENCEPHALOGRAM REPORT DATE OF SERVICE: 03/19/2022 CLINICAL HISTORY: This is a 36-year-old woman with reported syncopal episode. The video EEG is obtained to evaluate for seizure epileptiform activity. Relevant medication: The patient is not on any antiepileptic drug, according to the record. EEG TYPE: A routine 21-channel EEG is performed with video using the 10/20 electrode placement system. DESCRIPTION: Only wakefulness is obtained. During awake state the posterior-dominant rhythm consists of low to moderate voltage of 10.5 to 11 hertz activity that is well modulated, well sustained. There is no physiological sleep architecture seen. There is no focal slowing. Interictal and ictal is none. ACTIVATION PROCEDURE: Photic stimulation did not evoke a posterior driving response. There was no abnormality during the photic stimulation. Hyperventilation was not performed. CLINICAL INTERPRETATION: This is a normal routine EEG. There is no focal slowing, epileptiform discharges or seizure on the EEG. Clinical correlation is recommended. MAYURI / MARÍA: [id number] /
== END ==
LOC: NEUROMAIN 07:39
PROVIDERS: ATTEND Family Medicine
DX: R55 Syncope and collapse (principal); R07.9 Chest pain, unspecified; Z88.6 Allergy status to analgesic agent; Z87.891 Personal history of nicotine dependence
CPT/HCPCS: 95816

== ENCOUNTER → 2022-03-24 | Outpatient (CLI) | payer OTHER ==
--- NOTE | 2022-03-24 12:21 | CA ---
Exercise Stress Test Report Name: Nathaly Sapp Exam Date: 03/24/2022 09:35 Exam Location: [facility] Ht (in): 65 Wt (lb): 230 BSA: 2.10 Ordering Phys: Lanre Morgan DO Referring Phys: Lanre Morgan DO Technologist: Lanre Myers Age: 36 Gender: F : 1985 Procedure CPT: Indications: R07.89 other chest pain ICD-10 Codes: Patient History: Chest Pain, Palpitations, Hypertension, Family history of heart disease, Syncope Medications: Coreg, Lexipro, Multivitamin Meds past 24 hrs: Pretest Chest Pain: Pt had chest pain prior to the stress test #2 that never changed STRESS TEST Venancio Protocol Exercise Duration (min:sec): 08:[address] Depressions (mm): Angina Score: Bhat Score: Resting HR (bpm): 84 Peak HR (bpm): 180 Resting BP (mmHg): 118 / 77 Peak BP (mmHg): 160 / 77 MPHR: 185 Target HR: 157 % MPHR: 97 METS: 10.3 Total Dose: Peak Dose: Atropine: Double Product: 73042 BP Response: Stress Termination: Reached target heart rate Stress Symptoms: Chest pressure that resolved during recovery Stress Summary: ECG ANALYSIS Resting ECG: Stress ECG: CONCLUSIONS Baseline EKG revealed normal sinus rhythm without significant ST-T changes. Patient walked on a standard Venancio protocol for 9 minutes and achieved a maximum heart rate of 180 bpm which is available 85% of predicted maximal. Patient complained of chest pressure was atypical which resolved after exercise but there was no associated ST segment changes. This is technically a negative stress test with fair exercise capacity. There was no arrhythmia. There was no typical angina or arrhythmia. There was some atypical chest pain noted. No ischemic changes Dr. Kuldip Bahena MD (Electronically Signed) Final Date: 24 March 2022 12:21
== END | disposition home or self-care (01) ==
LOC: RADNMMAIN 08:46
PROVIDERS: ATTEND Family Medicine
DX: R07.89 Other chest pain (principal)
CPT/HCPCS: 93017

== ENCOUNTER → 2023-01-14 | Outpatient (CLI) | payer OTHER ==
--- NOTE | 2023-01-14 13:56 | XR ---
EXAMINATION TYPE: XR chest 2V DATE OF EXAM: 01/14/2023 1:47 PM COMPARISON: Chest radiographs from 03/01/2022 TECHNIQUE: XR chest 2V Frontal and lateral views of the chest. CLINICAL INDICATION:Female, 37 years old with history of [id number]; FINDINGS: Lungs/Pleura: There is no evidence of pleural effusion, focal consolidation, or pneumothorax. Pulmonary vascularity: Unremarkable. Heart/mediastinum: Cardiomediastinal silhouette is unremarkable. Musculoskeletal: No acute osseous pathology. IMPRESSION: No acute cardiopulmonary disease/process. No significant change from prior examination.
--- NOTE | 2023-01-14 13:58 | XR ---
EXAMINATION TYPE: XR cervical spine comp DATE OF EXAM: 01/14/2023 1:47 PM INDICATION: Patient age:Female; 37 years old; Reason for study: [id number]; [facility]. COMPARISON: Cervical spine radiograph 04/18/2017 TECHNIQUE: The cervical spine was imaged in 4 projections. Frontal, lateral, odontoid and bilateral o blique. FINDINGS: No acute fracture. Similar reversal of the normal cervical lordosis which could be due to muscle spas m. The intervertebral disk spaces are preserved. Pedicles are intact. Soft tissues are within alida l limits. The odontoid appears intact. IMPRESSION: No fracture or dislocation.
--- NOTE | 2023-01-14 13:59 | XR ---
EXAMINATION TYPE: XR lumbar spine 2 or 3V DATE OF EXAM: 01/14/2023 CLINICAL HISTORY: [id number] TECHNIQUE: Three views of the lumbar spine are submitted. COMPARISON: Lumbar spine radiograph 07/11/2012 FINDINGS: There are 5 lumbar type vertebral bodies identified. The lumbar spine shows satisfactory alignment w ithout evidence of acute fracture or dislocation. Vertebral body heights are within normal limits. Disc spaces are within normal limits. The overlying soft tissue appears unremarkable. IMPRESSION: No acute fracture or dislocation is seen in the lumbar spine.
== END | disposition home or self-care (01) ==
LOC: RADXRMAIN 13:25
PROVIDERS: ATTEND Emergency Medicine
DX: S13.4XXA Sprain of ligaments of cervical spine, initial encounter (principal); S39.012A Strain of muscle, fascia and tendon of lower back, initial encounter; S29.002A Unspecified injury of muscle and tendon of back wall of thorax, initial encounter
CPT/HCPCS: 71046; 72050; 72100

== ENCOUNTER → 2023-01-24 | Outpatient (CLI) | payer OTHER ==
--- NOTE | 2023-01-24 12:01 | XR ---
Exam: Lumbosacral spine 5 views Date: 01/24/2023 Comparison: 01/14/2023 Technique: Multiple views of the lumbar sacral spine were obtained per protocol. History: Low back pain with radiation into both legs. Findings: There is no significant lateral curvature of the lumbar spine. There is limited evaluation of the hany ateral sacroiliac joints, as they are partially excluded from the [id number]. Vertebral body heigh ts and alignment are within normal limits. Disc spaces are maintained. There is minimal facet arthrop athy at L5-S1. Impression: Minimal facet arthropathy without compression deformity or spondylolisthesis.
== END | disposition home or self-care (01) ==
LOC: RADXRMAIN 10:54
PROVIDERS: ATTEND Family Medicine
DX: M47.816 Spondylosis without myelopathy or radiculopathy, lumbar region (principal); G89.29 Other chronic pain
CPT/HCPCS: 72110

== ENCOUNTER 2023-02-14 16:49 | Emergency (ER) | payer OTHER ==
[2023-02-14 17:24] VITALS: TEMP 98.4
[2023-02-14 17:47] LABS: Appearance,Urine Clear (Clear); Bilirubin,Urine Negative (Negative); Blood,Urine Negative (Negative); Color,Urine Light Yellow; Glucose,Urine (UA) Negative (Negative); Ketones,Urine Negative (Negative); Leukocyte Esterase,Urine Negative (Negative); Nitrite,Urine Negative (Negative); Protein,Urine Negative (Negative); Specific Gravity,Urine 1.005 (1.001-1.035); Urobilinogen,Urine <2.0 mg/dL (<2.0)
[2023-02-14] MEDS ORDERED: SODIUM CHLORIDE 0.9% 1,000 ML IV ONE (18:42)
[2023-02-14] MEDS ORDERED: ACETAMINOPHEN TAB 500 MG TAB PO STA (19:00)
--- NOTE | 2023-02-14 19:00 | ED ---
General Adult HPI - General Chief complaint: Weakness Stated complaint: Cdiff and Covid+ Time Seen by Provider: 02/14/23 18:35 Source: patient, RN notes reviewed, old records reviewed Mode of arrival: ambulatory Limitations: no limitations - History of Present Illness Initial comments: 37-year-old female presents for evaluation of fatigue, cough, nasal congestion. Patient was diagnosed with coronavirus within the past 2 days. This was performed at the health department. She was diagnosed with C. difficile infection and diarrhea and is currently been on oral Flagyl. She states that her diarrhea is improving. She feels weak and has significant fatigue. No cough or dyspnea. No chest pain. No abdominal pain. - Related Data Home Medications Medication Instructions Recorded Confirmed Aspirin/Acetaminophen/Caffeine 2 tab PO BID PRN 08/23/18 03/01/22 [Excedrin Migraine Caplet] LORazepam [Ativan] 1 mg PO BID PRN 08/23/18 03/01/22 Acetaminophen Tab [Tylenol Tab] 1,000 mg PO Q6HR PRN 09/01/21 03/01/22 Ibuprofen [Motrin Ib] 800 mg PO Q8H PRN 09/01/21 03/01/22 Ascorbic Acid [Vitamin C] 1,000 mg PO HS 03/01/22 03/01/22 Cholecalciferol [Vitamin D3 (25 25 mcg PO HS 03/01/22 03/01/22 Mcg = 1000 Iu)] Escitalopram [Lexapro] 20 mg PO HS 03/01/22 03/01/22 Multivitamins, Thera [Multivitamin 1 tab PO HS 03/01/22 03/01/22 (formulary)] Vitamin B Complex 1 cap PO HS 03/01/22 03/01/22 Zinc 50 mg PO HS 03/01/22 03/01/22 carvediloL [Coreg] 25 mg PO HS 03/01/22 03/01/22 Previous Rx's Medication Instructions Recorded Metoclopramide HCl [Reglan] 10 mg PO Q6HR PRN #15 tablet 03/01/22 Allergies Allergy/AdvReac Type Severity Reaction Status Date / Time rizatriptan benzoate AdvReac AGGRESSIVE Verified 02/14/23 17:25 [From [facility]] Review of Systems ROS Statement: Those systems with pertinent positive or pertinent negative responses have been documented in the HPI. ROS Other: All systems not noted in ROS Statement are negative. Past Medical History Past Medical History: No Reported History Additional Past Medical History / Comment(s): depression History of Any Multi-Drug Resistant Organisms: None Reported Past Surgical History: Tubal Ligation Additional Past Surgical History / Comment(s): LEEP procedure Past Anesthesia/Blood Transfusion Reactions: No Reported Reaction Past Psychological History: Anxiety, Depression, Panic Disorder Smoking Status: Current every day smoker Past Alcohol Use History: Occasional Past Drug Use History: Marijuana General Exam Limitations: no limitations General appearance: alert, in no apparent distress Head exam: Present: atraumatic, normocephalic Eye exam: Present: normal appearance, PERRL ENT exam: Present: mucous membranes dry Neck exam: Present: normal inspection. Absent: tenderness, meningismus Respiratory exam: Present: normal lung sounds bilaterally. Absent: respiratory distress, wheezes Cardiovascular Exam: Present: regular rate, normal rhythm GI/Abdominal exam: Present: soft. Absent: distended, tenderness, guarding Extremities exam: Present: normal inspection, normal capillary refill. Absent: pedal edema Neurological exam: Present: alert, oriented X3 Psychiatric exam: Present: normal affect, normal mood. Absent: depressed Skin exam: Present: warm, dry, intact Course Vital Signs 02/14/23 02/14/23 17:21 19:02 Temperature 98.4 F Pulse Rate 107 H 106 H Respiratory 16 18 Rate Blood Pressure 140/81 139/90 O2 Sat by Pulse 96 97 Oximetry Medical Decision Making - Medical Decision Making Was pt. sent in by a medical professional or institution (, PA, SUPPLY MANAGER, urgent care, hospital, or snf...) When possible be specific @ -No Did you speak to anyone other than the patient for history (EMS, parent, family, police, friend...)? What history was obtained from this source @ -No Did you review nursing and triage notes (agree or disagree)? Why? @ -I reviewed and agree with nursing and triage notes Were old charts reviewed (outside hosp., previous admission, EMS record, old EKG, old radiological studies, urgent care reports/EKG's, snf records)? Report findings @ -No old charts were reviewed Differential Diagnosis (chest pain, altered mental status, abdominal pain women, abdominal pain men, vaginal bleeding, weakness, fever, dyspnea, syncope, headache, dizziness, GI bleed, back pain, seizure, CVA, palpatations, mental health, musculoskeletal)? @ Differential Weakness: Hypoglycemia, shock, sepsis, hyponatremia, anemia, infection, EKG interpreted by me (3pts min.). @ -As above X-rays interpreted by me (1pt min.). @ -None done CT interpreted by me (1pt min.). @ -None done U/S interpreted by me (1pt. min.). @ -None done What testing was considered but not performed or refused? (CT, X-rays, U/S, labs)? Why? @ -None What meds were considered but not given or refused? Why? @ -None Did you discuss the management of the patient with other professionals (professionals i.e. , PA, SUPPLY MANAGER, lab, RT, psych nurse, social insurance adviser, solar energy technician, teacher, space operations officer, bilingual case manager)? Give summary @ -No Was smoking cessation discussed for >3mins.? @ -No Was critical care preformed (if so, how long)? @ -No Were there social determinants of health that impacted care today? How? ( Homelessness, low income, unemployed, alcoholism, drug addiction, transportation, low edu. Level, literacy, decrease access to med. care, longterm, rehab)? @ -No Was there de-escalation of care discussed even if they declined (Discuss DNR or withdrawal of care, Hospice)? DNR status @ -No What co-morbidities impacted this encounter? (DM, HTN, Smoking, COPD, CAD, Cancer, CVA, ARF, Chemo, Hep., AIDS, mental health diagnosis, sleep apnea, morbid obesity)? @ -None Was patient admitted / discharged? Hospital course, mention meds given and route, prescriptions, significant lab abnormalities, going to OR and other pertinent info. @ -37-year-old female with both C. difficile and cold. Laboratory testing is unremarkable. Patient is in no respiratory distress, lungs are clear. She's given IV fluid and Tylenol in the emergency department. She's given strict return parameters and will follow-up with her primary care physician. Undiagnosed new problem with uncertain prognosis? @ -No Drug Therapy requiring intensive monitoring for toxicity (Heparin, Nitro, Insulin, Cardizem)? @ -No Were any procedures done? @ -No Diagnosis/symptom? @ Coronavirus, C. difficile Acute, or Chronic, or Acute on Chronic? @ Acute Uncomplicated (without systemic symptoms) or Complicated (systemic symptoms)? @ Complicated Side effects of treatment? @ -No Exacerbation, Progression, or Severe Exacerbation? @ -No Poses a threat to life or bodily function? How? (Chest pain, USA, SC, pneumonia, PE, COPD, DKA, ARF, appy, cholecystitis, CVA, Diverticulitis, Homicidal, Suicidal, threat to staff... and all critical care pts) @ Yes, dehydration, pneumonia - Lab Data Result diagrams: 02/14/23 19:10 02/14/23 19:10 Lab Results 02/14/23 02/14/23 02/14/23 Range/Units 17:28 17:28 19:10 WBC 7.7 (3.8-10.6) k/uL RBC 4.91 (3.80-5.40) m/uL Hgb 15.0 (11.4-16.0) gm/dL Hct 44.6 (34.0-46.0) % MCV 90.7 (80.0-100.0) fL MCH 30.5 (25.0-35.0) pg MCHC 33.6 (31.0-37.0) g/dL RDW 12.7 (11.5-15.5) % Plt Count 252 (150-450) k/uL MPV 7.3 Neutrophils % 77 % Lymphocytes % 12 % Monocytes % 7 % Eosinophils % 2 % Basophils % 1 % Neutrophils # 5.9 (1.3-7.7) k/uL Lymphocytes # 1.0 (1.0-4.8) k/uL Monocytes # 0.5 (0-1.0) k/uL Eosinophils # 0.1 (0-0.7) k/uL Basophils # 0.1 (0-0.2) k/uL Sodium (137-145) mmol/L Potassium (3.5-5.1) mmol/L Chloride (98-107) mmol/L Carbon Dioxide (22-30) mmol/L Anion Gap mmol/L BUN (7-17) mg/dL Creatinine (0.52-1.04) mg/dL Est GFR (CKD-EPI)AfAm (>60 ml/min/1.73 sqM) Est GFR (CKD-EPI)NonAf (>60 ml/min/1.73 sqM) Glucose (74-99) mg/dL Plasma Lactic Acid Jayesh (0.7-2.0) mmol/L Calcium (8.4-10.2) mg/dL Total Bilirubin (0.2-1.3) mg/dL AST (14-36) U/L ALT (4-34) U/L Alkaline Phosphatase (38-126) U/L Total Protein (6.3-8.2) g/dL Albumin (3.5-5.0) g/dL Urine Color Light Yellow Urine Appearance Clear (Clear) Urine pH 7.0 (5.0-8.0) Ur Specific [place] 1.005 (1.001-1.035) Urine Protein Negative (Negative) Urine Glucose (UA) Negative (Negative) Urine Ketones Negative (Negative) Urine Blood Negative (Negative) Urine Nitrite Negative (Negative) Urine Bilirubin Negative (Negative) Urine Urobilinogen <2.0 (<2.0) mg/dL Ur Leukocyte Esterase Negative (Negative) Urine HCG, Qual Not Detected (Not Detectd) 02/14/23 02/14/23 Range/Units 19:10 19:10 WBC (3.8-10.6) k/uL RBC (3.80-5.40) m/uL Hgb (11.4-16.0) gm/dL Hct (34.0-46.0) % MCV (80.0-100.0) fL MCH (25.0-35.0) pg MCHC (31.0-37.0) g/dL RDW (11.5-15.5) % Plt Count (150-450) k/uL MPV Neutrophils % % Lymphocytes % % Monocytes % % Eosinophils % % Basophils % % Neutrophils # (1.3-7.7) k/uL Lymphocytes # (1.0-4.8) k/uL Monocytes # (0-1.0) k/uL Eosinophils # (0-0.7) k/uL Basophils # (0-0.2) k/uL Sodium 137 (137-145) mmol/L Potassium 4.3 (3.5-5.1) mmol/L Chloride 101 (98-107) mmol/L Carbon Dioxide 26 (22-30) mmol/L Anion Gap 10 mmol/L BUN 14 (7-17) mg/dL Creatinine 0.61 (0.52-1.04) mg/dL Est GFR (CKD-EPI)AfAm >90 (>60 ml/min/1.73 sqM) Est GFR (CKD-EPI)NonAf >90 (>60 ml/min/1.73 sqM) Glucose 99 (74-99) mg/dL Plasma Lactic Acid Jayesh 0.9 (0.7-2.0) mmol/L Calcium 9.4 (8.4-10.2) mg/dL Total Bilirubin 0.4 (0.2-1.3) mg/dL AST 59 H (14-36) U/L ALT 58 H (4-34) U/L Alkaline Phosphatase 68 (38-126) U/L Total Protein 7.1 (6.3-8.2) g/dL Albumin 4.2 (3.5-5.0) g/dL Urine Color Urine Appearance (Clear) Urine pH (5.0-8.0) Ur Specific [place] (1.001-1.035) Urine Protein (Negative) Urine Glucose (UA) (Negative) Urine Ketones (Negative) Urine Blood (Negative) Urine Nitrite (Negative) Urine Bilirubin (Negative) Urine Urobilinogen (<2.0) mg/dL Ur Leukocyte Esterase (Negative) Urine HCG, Qual (Not Detectd) Disposition Clinical Impression: Dehydration, COVID-19 Disposition: HOME SELF-CARE Condition: Fair Instructions (If sedation given, give patient instructions): COVID-19 (Coronavirus Disease 2019) (ED) Additional Instructions: Please to vitamin C, vitamin D, zinc Is patient prescribed a controlled substance at d/c from ED?: No Referrals: Lanre Morgan DO [Primary Care Provider] - 1-2 days Time of Disposition: 19:54
[2023-02-14 19:04] VITALS: BP 139/90; PULSE 106; RESP 18
[2023-02-14 19:29] LABS: Basophils # (A) 0.1 k/uL (0-0.2); Basophils % (A) 1 %; Eosinophils # (A) 0.1 k/uL (0-0.7); Eosinophils % (A) 2 %; HCT 44.6 % (34.0-46.0); Lymphocytes % (A) 12 %; MCH 30.5 pg (25.0-35.0); MCHC 33.6 g/dL (31.0-37.0); MCV 90.7 fL (80.0-100.0); Mean Platelet Volume 7.3; Monocytes # (A) 0.5 k/uL (0-1.0); Monocytes % (A) 7 %; Neutrophils # (A) 5.9 k/uL (1.3-7.7); Neutrophils % (A) 77 %; Platelet Count 252 k/uL (150-450); RBC 4.91 m/uL (3.80-5.40); RDW 12.7 % (11.5-15.5); WBC 7.7 k/uL (3.8-10.6)
[2023-02-14 19:43] LABS: ALT 58 U/L (4-34); AST 59 U/L (14-36); African American GFR (CKD) >90 (>60 ml/min/1.73 sqM); Albumin 4.2 g/dL (3.5-5.0); Alkaline Phosphatase 68 U/L (38-126); Anion Gap 10 mmol/L; Blood Urea Nitrogen 14 mg/dL (7-17); Calcium 9.4 mg/dL (8.4-10.2); Carbon Dioxide 26 mmol/L (22-30); Chloride 101 mmol/L (98-107); Glucose 99 mg/dL (74-99); Non-African American GFR(CKD) >90 (>60 ml/min/1.73 sqM); Potassium 4.3 mmol/L (3.5-5.1); Sodium 137 mmol/L (137-145); Total Bilirubin 0.4 mg/dL (0.2-1.3); Total Protein 7.1 g/dL (6.3-8.2)
== END 2023-02-14 20:32 | disposition home or self-care (01) ==
LOC: EC 16:49
DX: U07.1 COVID-19 (principal); E86.0 Dehydration; F41.9 Anxiety disorder, unspecified; F32.A Depression, unspecified; F12.90 Cannabis use, unspecified, uncomplicated; F17.200 Nicotine dependence, unspecified, uncomplicated; Z79.82 Long term (current) use of aspirin; Z79.899 Other long term (current) drug therapy; Z88.8 Allergy status to other drugs, medicaments and biological substances
CPT/HCPCS: 36415; 80053; 81003; 81025; 83605; 85025; 96360; 99284

== ENCOUNTER → 2023-03-04 | Outpatient (CLI) | payer OTHER ==
--- NOTE | 2023-03-04 14:40 | XR ---
EXAMINATION TYPE: XR ankle complete LT DATE OF EXAM: 03/04/2023 CLINICAL HISTORY: Remote injury with recurrent pain and swelling TECHNIQUE: Frontal, lateral and oblique images of the left ankle are obtained. COMPARISON: Prior left ankle x-ray May 01, 2014. FINDINGS: There is no acute fracture/dislocation evident in the left ankle. The ankle mortise appea rs stable and within normal limits. Focal mild soft tissue swelling over the lateral malleolus is now present. IMPRESSION: As above.
== END | disposition home or self-care (01) ==
LOC: RADXRMAIN 10:33
PROVIDERS: ATTEND Family Medicine
DX: M25.572 Pain in left ankle and joints of left foot (principal)

== ENCOUNTER 2023-05-17 06:35 | Day surgery (SDC) | payer OTHER ==
[2023-05-09 16:12] VITALS: BMI 39.9
[~2023-05-17 06:35] MED LIST: LACTATED RINGERS 1,000 ML IV SCH
[2023-05-17] MEDS ORDERED: ONDANSETRON 4 MG/2 ML VIAL ONE (07:06)
[2023-05-17 07:09] VITALS: RESP 16; TEMP 97
[2023-05-17] MEDS ORDERED: ONDANSETRON 4 MG/2 ML VIAL IVP ONE (07:09)
[2023-05-17 07:12] LABS: Glucose,Whole Blood 109 mg/dL (70-110)
[2023-05-17] MEDS ORDERED: PROPOFOL 10 MG/ML 20 ML VIAL IV ONE (07:21)
[2023-05-17] MEDS ORDERED: MIDAZOLAM 2 MG/2 ML VIAL ONE (07:21)
[2023-05-17] MEDS ORDERED: LIDOCAINE 2% INJ 20 MG/ML (2 ML VIAL) ONE (07:21)
[2023-05-17] MEDS ORDERED: fentaNYL (PF) 50 MCG/ML 2 ML AMP ONE (07:21)
[2023-05-17] MEDS ORDERED: LACTATED RINGERS 1,000 ML IV ONE ×2 (07:24)
--- NOTE | 2023-05-17 07:46 | P.PCN ---
Date of Procedure: 05/17/23 Procedure(s) Performed: Brief history: Patient is a pleasant 37-year-old pleasant white female scheduled for an elective upper endoscopy as well as colonoscopy as a part of evaluation of in the interim with episodes of nausea vomiting, chronic diarrhea and rectal bleeding for the last few weeks duration Procedure performed: Esophagogastroduodenoscopy with biopsy Colonoscopy with biopsy Preoperative diagnosis: Intermittent nausea Chronic diarrhea and rectal bleeding [place] [facility]: After informed consent was obtained from the patient was brought into the endoscopy unit and IV sedation was administered by anesthesia under continuous monitoring. Initially upper endoscopy was done. The Olympus GF 160 video endoscope was inserted inserted into the mouth and esophagus intubated without any difficulty and was gradually advanced into the stomach and duodenum and carefully examined. The bulb and second part of the duodenum appeared normal. Biopsies were done from the duodenum to rule out celiac disease The scope was then withdrawn into the stomach adequately insufflated with air and upon careful examination the antrum had patchy areas of erythema and biopsies were done from this area. Mucosa body, cardia and fundus appeared normal. The scope was then withdrawn into the esophagus. The GE junction was located at 40 cm to the incisors. It appeared regular with no erythema erosions or ulcerations. biopsies were done from the distal esophagus. Rest of the esophagus appeared normal. Patient tolerated the procedure well. At this time the patient continued to remain sedation. Initial digital rectal examination was normal. Olympus CF 160 video colonoscope was then inserted into the rectum and gradually advanced to the cecum without any difficulty. Careful examination was performed as the scope was gradually being withdrawn. The prep was excellent. Terminal ileum was intubated and 20 cm visualized and appeared normal. The cecum, ascending colon, transverse colon, descending colon, sigmoid colon and rectum appeared normal. In the distal rectum there was mild erythema noted and biopsies were done to rule out idiopathic proctitis. Also random biopsies were done from ascending and descending colon to rule out microscope/collagenous colitis. Retroflexion was performed in the rectum and no lesions were noted. Patient tolerated the procedure well. Impression: 1. Upper endoscopy revealed mild antral gastritis but no evidence of esophagitis or peptic ulcer disease. 2. Colonoscopy revealed mild patchy erythema in the distal rectum status post biopsies to rule out idiopathic proctitis but the rest of the colon appeared normal Recommendations: Findings of this examination were discussed with the patient as well as her family. She was advised to follow with the biopsy results. She'll be seen in office in 2 weeks.
[2023-05-17 08:08] VITALS: BP 106/76; PULSE 72
== END 2023-05-17 08:36 | disposition home or self-care (01) ==
LOC: ORWHC2ENDO 06:35
PROVIDERS: ATTEND Internal Medicine Gastroenterology
DX: D72.820 Lymphocytosis (symptomatic) (principal); K29.50 Unspecified chronic gastritis without bleeding; K62.89 Other specified diseases of anus and rectum; K21.9 Gastro-esophageal reflux disease without esophagitis; F17.200 Nicotine dependence, unspecified, uncomplicated; Z79.899 Other long term (current) drug therapy; Z87.410 Personal history of cervical dysplasia
CPT/HCPCS: 81025; 88305; 45380; 43239; J2250; J2405; J3010; J2704; J2001

== ENCOUNTER 2023-12-08 14:31 | Emergency (ER) | payer OTHER ==
--- NOTE | 2023-12-08 15:45 | CT ---
EXAMINATION TYPE: [facility] DATE OF EXAM: 12/08/2023 COMPARISON: Head CT dated 03/01/2022 HISTORY: fell on Tuesday12/02/23, dizziness, headaches, nausea, blurred vision CT DLP: 1354.2 mGycm Automated exposure control for dose reduction was used. TECHNIQUE: CT scan of the head and cervical spine are performed without contrast. FINDINGS Head CT: Ventricles, basal cisterns and sulci over the convexities within normal limits and there is no mass e ffect or shift of midline structures. No abnormal density is seen throughout the brain parenchyma and there is no acute intra or extra-axia l hemorrhage. The posterior fossa including the brainstem, fourth ventricle and cerebellar pontine angles appear gr ossly normal. Intraorbital contents appear normal and symmetric. There is an air-fluid level in the sphenoid sinus indicating possible acute sinusitis and there are m oderate to marked chronic inflammatory change in the maxillary sinuses, right greater than left. The mastoid air cells are well aerated. Frontal sinuses are hypoplastic. The calvarium is intact CT cervical spine: The craniovertebral junction relationships and prevertebral soft tissues are normal. The cervical vertebral segments are normal in height and alignment and there is no fracture or sublux ation. There is no degenerative disc disease and the disc spaces are well-maintained in height. There is no arthritic changes involving the facet joints or uncovertebral joints. There is no bony encroachment of the cervical canal or neural foramina. Impression 1. No acute bleed or mass effect intracranially. 2. Calvarium intact. 3. Inflammatory changes in the paranasal sinuses as described above. 4. No acute trauma to the cervical spine.
--- NOTE | 2023-12-08 16:40 | ED ---
Head Injury HPI - General Chief complaint: Head Injury Stated complaint: dizziness/nausea, blurry vision Time Seen by Provider: 12/08/23 16:16 Source: patient Mode of arrival: ambulatory Limitations: no limitations - History of Present Illness Initial comments: 38-year-old female presenting with chief complaint of headache. Patient had a syncopal episode at home 7 days ago. She fell from standing and did hit her head. She was seen at [facility], she was diagnosed with a fibula fracture, mom states that no head CT was performed. She states that since then she has had continued headache, nausea, dizziness, blurred vision, light sensitivity. She occasionally takes Tylenol 3 for her symptoms, usually 1/day. She was concerned that head CT was not performed and states that she wanted one done before her surgery. No chest pain or difficulty breathing. No numbness or tingling. - Related Data Home Medications Medication Instructions Recorded Confirmed Aspirin/Acetaminophen/Caffeine 2 tab PO BID PRN 08/23/18 05/17/23 [Excedrin Migraine Caplet] LORazepam [Ativan] 0.5 mg PO DIRECTED PRN 08/23/18 05/17/23 Acetaminophen Tab [Tylenol Tab] 1,000 mg PO Q6HR PRN 09/01/21 05/17/23 Ibuprofen [Motrin Ib] 800 mg PO Q8H PRN 09/01/21 05/17/23 Ascorbic Acid [Vitamin C] 1,000 mg PO HS 03/01/22 05/17/23 Atomoxetine HCl [Strattera] 36 mg PO DAILY 05/10/23 05/17/23 Famotidine [Pepcid] 20 mg PO BID 05/10/23 05/17/23 Multivit with Calcium,Iron,Min 1 each PO DAILY 05/10/23 05/17/23 [Women's Multivitamin] Omeprazole (Unknown Dose) 1 tab PO DAILY 05/10/23 05/17/23 Ondansetron [Zofran] 4 mg PO DIRECTED PRN 05/10/23 05/17/23 Pregabalin [Lyrica] 75 mg PO BID PRN 05/10/23 05/17/23 carvediloL [Coreg] 6.25 mg PO BID 05/10/23 05/17/23 methocarbamoL [Methocarbamol] 750 mg PO DIRECTED 05/10/23 05/17/23 Previous Rx's Medication Instructions Recorded Amoxic-Pot Clav 875-125Mg 1 tab PO Q12HR 7 Days #14 tab 12/08/23 [Augmentin 875-125] Allergies/Adverse reactions: Allergies Allergy/AdvReac Type Severity Reaction Status Date / Time rizatriptan benzoate AdvReac AGGRESSIVE Verified 05/09/23 15:45 [From [facility]] Review of Systems ROS Statement: Those systems with pertinent positive or pertinent negative responses have been documented in the HPI. ROS Other: All systems not noted in ROS Statement are negative. Past Medical History Past Medical History: Hypertension, Musculoskeletal Disorder, Neurologic Disorder, Pneumonia, Skin Disorder Additional Past Medical History / Comment(s): Bradycardia/Tachycardia. SOB/wheezy sometimes. Hx Pneumonia 2 yrs ago. Chronic nausea, recent vomiting, mucous and blood stool. Carpal tunnel and neuropathy in arms. Left plantar fa scitis. Migraines. Ezcema and "little dots on arms." History of Any Multi-Drug Resistant Organisms: None Reported Past Surgical History: Tubal Ligation Additional Past Surgical History / Comment(s): LEEP procedure, left foot cortisone injection 05/06/23. Past Anesthesia/Blood Transfusion Reactions: Previous Problems w/ Anesthesia, Motion Sickness Additional Past Anesthesia/Blood Transfusion Reaction / Comment(s): Panic attack/crying after tubal ligation. Past Psychological History: ADD/ADHD, Anxiety, Depression, Panic Disorder Smoking Status: Current every day smoker Past Alcohol Use History: Occasional Past Drug Use History: Marijuana - Past Family History Mother Family Medical History: No Reported History General Exam Limitations: no limitations General appearance: alert, in no apparent distress Head exam: Present: atraumatic, normocephalic Eye exam: Present: normal appearance, PERRL, EOMI Neck exam: Present: normal inspection Respiratory exam: Absent: respiratory distress Cardiovascular Exam: Present: regular rate Neurological exam: Present: alert, oriented X3 Expanded Eye Response: (4) open spontaneously Motor Response: (6) obeys commands Verbal Response: (5) oriented [place] Total: 15 Psychiatric exam: Present: normal affect, normal mood Skin exam: Present: warm, dry Course Vital Signs 12/08/23 12/08/23 14:46 17:10 Temperature 98.2 F 98.7 F Pulse Rate 91 89 Respiratory 20 18 Rate Blood Pressure 131/90 136/80 O2 Sat by Pulse 99 99 Oximetry Medical Decision Making - Medical Decision Making Was pt. sent in by a medical professional or institution (, [facility], [facility], urgent care, hospital, or [place] health [place] facility...) When possible be specific @ -No Did you speak to anyone other than the patient for history (EMS, parent, family, police, friend...)? What history was obtained from this source @ -No Did you review nursing and triage notes (agree or disagree)? Why? @ -I reviewed and agree with nursing and triage notes Were old charts reviewed (outside hosp., previous admission, EMS record, old EKG, old radiological studies, urgent care reports/EKG's, [place] health care facility records)? Report findings @ -No old charts were reviewed Differential Diagnosis (chest pain, altered mental status, abdominal pain women, abdominal pain men, vaginal bleeding, weakness, fever, dyspnea, syncope, headache, dizziness, GI bleed, back pain, seizure, CVA, palpatations, mental health, musculoskeletal)? @ -MDM Differential Headache: Migraine, tension, cluster, carbon monoxide, central venous thrombosis, pension karma temporal arteritis, acute closure glaucoma, intercranial hemorrhage, mastoiditis, sinusitis, head injury this is not meant to be an all-inclusive list. EKG interpreted by me (3pts min.). @ -As above X-rays interpreted by me (1pt min.). @ -None done CT interpreted by me (1pt min.). @ -CT shows no acute bleed or mass effect intracranially. Calvarium intact. Inflammatory changes in the paranasal sinuses as described above. No acute trauma to the cervical spine U/S interpreted by me (1pt. min.). @ -None done What testing was considered but not performed or refused? (CT, X-rays, U/S, labs)? Why? @ -None What meds were considered but not given or refused? Why? @ -None Did you discuss the management of the patient with other professionals (professionals i.e. [facility], [facility], lab, RT, psych nurse, adoption social worker, trial lawyer, teacher, medical officer, rn case management)? Give summary @ -No Was smoking cessation discussed for >3mins.? @ -No Was critical care preformed (if so, how long)? @ -No Were there social determinants of health that impacted care today? How? (Homelessness, low income, unemployed, alcoholism, drug addiction, transportation, low edu. Level, literacy, decrease access to med. care, halfway, rehab)? @ -No Was there de-escalation of care discussed even if they declined (Discuss DNR or withdrawal of care, Hospice)? DNR status @ -No What co-morbidities impacted this encounter? (DM, HTN, Smoking, COPD, CAD, Cancer, CVA, ARF, Chemo, Hep., AIDS, mental health diagnosis, sleep apnea, morbid obesity)? @ -None Was patient admitted / discharged? Hospital course, mention meds given and route, prescriptions, significant lab abnormalities, going to OR and other pertinent info. @ -38-year-old female presenting with chief complaint of headache. She had a syncopal episode with head injury 1 week ago and has had continued headaches, nausea, dizziness, blurry vision. Workup is initiated by triage. CT shows no acute intracranial process or cervical spine fracture. There is acute sinusitis noted. On physical exam the patient has no focal neurological deficits, GCS 15. She does admit to pain and pressure over the frontal and maxillary sinuses. Her symptoms are likely attributed to a combination of concussion and sinusitis. Patient will be treated for sinusitis with Augmentin. She has a follow-up appointment with her PCP next week. Discharged home. Follow-up with PCP. Report back to ER with any new or worsening symptoms. Discussed return parameters and answered all questions. Patient conveyed verbal understanding and agreed to the plan. I discussed this case in detail with my attending Undiagnosed new problem with uncertain prognosis? @ -No Drug Therapy requiring intensive monitoring for toxicity (Heparin, Nitro, Insulin, Cardizem)? @ -No Were any procedures done? @ -No Diagnosis/symptom? @ -Concussion, sinusitis Acute, or Chronic, or Acute on Chronic? @ -Acute Uncomplicated (without systemic symptoms) or Complicated (systemic symptoms)? @ -Complicated Side effects of treatment? @ -No Exacerbation, Progression, or Severe Exacerbation? @ -No Poses a threat to life or bodily function? How? (Chest pain, [place], [place], pneumonia, PE, COPD, DKA, ARF, appy, cholecystitis, CVA, Diverticulitis, Homicidal, Suicidal, threat to staff... and all critical care pts) @ -Low likelihood Disposition Clinical Impression: Concussion, Sinusitis Disposition: HOME SELF-CARE Condition: Fair Instructions (If sedation given, give patient instructions): Sinusitis (ED), Concussion (ED) Additional Instructions: Follow-up with PCP. Report back to ER with any new or worsening symptoms. Alternate Motrin and Tylenol as needed for pain control. Take medication as prescribed. Prescriptions: Amoxic-Pot Clav 875-125Mg [Augmentin 875-125] 1 tab PO Q12HR 7 Days #14 tab Is patient prescribed a controlled substance at d/c from ED?: No Referrals: Lanre Morgan DO [Primary Care Provider] - 1-2 days Time of Disposition: 16:40
[2023-12-08] MEDS: IBUPROFEN 600 MG TAB PO STA (16:51)
[2023-12-08] MEDS: ACETAMINOPHEN TAB 325 MG TAB PO STA (16:51)
[2023-12-08 17:33] VITALS: BP 136/80; PULSE 89; RESP 18; TEMP 98.7
== END 2023-12-08 17:10 | disposition home or self-care (01) ==
LOC: EC 14:31
DX: S06.0XAA Concussion with loss of consciousness status unknown, initial encounter (principal); J32.8 Other chronic sinusitis; R40.2362 Coma scale, best motor response, obeys commands, at arrival to emergency department; R40.2142 Coma scale, eyes open, spontaneous, at arrival to emergency department; R40.2252 Coma scale, best verbal response, oriented, at arrival to emergency department; I10 Essential (primary) hypertension; F17.200 Nicotine dependence, unspecified, uncomplicated; F12.90 Cannabis use, unspecified, uncomplicated; F32.A Depression, unspecified; F41.9 Anxiety disorder, unspecified; Z79.899 Other long term (current) drug therapy; Z88.8 Allergy status to other drugs, medicaments and biological substances; W18.30XA Fall on same level, unspecified, initial encounter
CPT/HCPCS: 70450; 72125; 99284

== ENCOUNTER → 2024-06-04 | Outpatient (CLI) | payer OTHER ==
--- NOTE | 2024-06-27 16:23 | US ---
Site ID [facility] Nathaly Rand ID [id number] N/A Age/Gender: N/A, N/A Order # N/A Procedure US carotid duplex BILAT Date 06/04/2024 9:28:00 AM EXAMINATION TYPE: US carotid duplex BILAT DATE OF EXAM: 06/06/2024 COMPARISON: NONE CLINICAL INDICATION: history of partial seizures. TECHNIQUE: Carotid duplex ultrasound examination. Indirect Doppler criteria was utilized. FINDINGS: EXAM MEASUREMENTS: RIGHT: Peak Systolic Velocity (PSV) cm/sec ----- Right CCA: 65.2 ----- Right ICA: 103 ----- Right ECA: 90.1 ICA/CCA ratio: 1.58 RIGHT: End Diastole cm/sec ----- Right CCA: 23.0 ----- Right ICA: 53.4 ----- Right ECA: 18.6 LEFT: Peak Systolic Velocity (PSV) cm/sec ----- Left CCA: 84.5 ----- Left ICA: 107 ----- Left ECA: 84.8 ICA/CCA ratio: 1.27 LEFT: End Diastole cm/sec ----- Left CCA: 38.3 ----- Left ICA: 57.4 ----- Left ECA: 16.8 VERTEBRALS (direction of flow): Right Vertebral: Antegrade Left Vertebral: Antegrade Rhythm: Normal [employer] NOTES: No discrete abnormality. No plaque, stenosis, or elevated velocities/ratios. IMPRESSION: No ultrasound evidence for hemodynamically significant stenosis of the bilateral visualized carotid a rterial systems. Criteria for Assigning % of Stenosis / Diameter reduction (Estimation based on the indirect measurements of the internal carotid artery velocities (ICA PSV). 1. Normal (no stenosis)=ICA PSV < 125 cm/s: ratio < 2.0: ICA EDV<40 cm/s. 2. Less than 50% stenosis=ICA PSV < 125 cm/s: ratio < 2.0: ICA EDV<40 cm/s. 3. 50 to 69% stenosis=ICA PSV of 125 to 230 cm/s: ration 2.0 ? 4.0: ICA EDV 40-100 cm/s. 4. Greater than 70% stenosis to near occlusion= ICA PSV > 230 cm/s: ratio > 4.0: ICA EDV > 100 cm/s. 5. Near occlusion= ICA PSV velocities may be low or undetectable: variable ratio and ICA EDV. 6. Total occlusion=unable to detect flow.
== END | disposition home or self-care (01) ==
LOC: RADUSWWP 09:00
PROVIDERS: ATTEND Family Medicine
DX: G40.209 Localization-related (focal) (partial) symptomatic epilepsy and epileptic syndromes with complex partial seizures, not intractable, without status epilepticus (principal)
CPT/HCPCS: 93880

== ENCOUNTER → 2024-10-02 | Outpatient (CLI) | payer OTHER ==
--- NOTE | 2024-10-02 09:30 | MR ---
INDICATION: Patient age:Female; 39 years old; Reason for study: R55 syncope; [facility]. COMPARISON: CT brain C-spine 12/08/2023, CT brain 03/01/2022, 09/23/2020, MR brain 09/16/2018. TECHNIQUE: Multi planar, multi sequence imaging was performed through the brain without the administr ation of intravenous contrast. FINDINGS: The shah-white junctions, ventricular system, basal cisterns appear unremarkable. Age-appropriate cer ebral volume. Diffusion-weighted imaging shows no evidence of restricted diffusion to suggest acute/s ubacute infarct. Intracranial arterial flow voids are maintained. 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 Remaining midline structures demonst rate normal pathology. No new FLAIR signal abnormalities. The susceptibility weighted images do not r eveal any evidence for micro-hemorrhage. The bone marrow signal is within normal limits. The paranasal sinuses and globes are unremarkable. IMPRESSION: 1. No evidence of acute/subacute infarct. 2. Stable pineal gland cyst. [facility], , 10/02/2024 9:28 AM
== END | disposition home or self-care (01) ==
LOC: RADMRIMAIN 08:26
PROVIDERS: ATTEND Psychiatry & Neurology Neurology
DX: R55 Syncope and collapse (principal); Z87.898 Personal history of other specified conditions
CPT/HCPCS: 70551

== ENCOUNTER → 2024-10-11 | Day surgery (SDC) | payer OTHER ==
[2024-10-04 12:32] VITALS: BMI 33.3
[2024-10-11 06:56] VITALS: BP 111/68; PULSE 71; RESP 18; TEMP 98.4
[2024-10-11] MEDS: SODIUM CHLORIDE 0.9% 1,000 ML IV SCH (06:57)
[2024-10-11] MEDS: IV FLUID CONTINUATION 1,000 ML IV ONE (06:57)
--- NOTE | 2024-10-12 08:32 | P.EPPROC ---
- EP Procedure Note Electrophysiology Procedure Note: Diagnosis Recurrent presyncope Twelve-lead EKG shows sinus rhythm normal heart rates normal cardiac intervals normal QT interval no delta waves Tilt table test per protocol Baseline heart rate 62 beats minute, baseline blood pressure 113/77 mmHg Patient was tilted upright in angle of 70 degrees per protocol Normal heart rate and blood pressure response to upright tilting despite feeling of dizziness and weakness on multiple occasions along with a feeling of being flushed No hypertension, no arrhythmias noted Impression normal twelve-lead EKG Normal heart rate and blood pressure response to upright tilting
== END ==
LOC: CATHEP 06:26
PROVIDERS: ATTEND Internal Medicine Clinical Cardiac Electrophysiology
DX: R55 Syncope and collapse (principal); I10 Essential (primary) hypertension; F41.9 Anxiety disorder, unspecified; F17.290 Nicotine dependence, other tobacco product, uncomplicated; Z79.899 Other long term (current) drug therapy; Z98.51 Tubal ligation status; Z98.890 Other specified postprocedural states

== ENCOUNTER → 2025-04-08 | Outpatient (CLI) | payer OTHER ==
--- NOTE | 2025-04-08 16:16 | MM ---
Reason for Exam: Screening (asymptomatic). Patient History: Menarche at age 13. First Full-Term at age 18. Premenopausal. Maternal aunt had breast cancer, age 50. Maternal aunt had breast cancer. Risk Values: Violeta 5 year model risk: 0.3%. NCI Lifetime model risk: 7.4%. Tissue Density: The breasts are heterogeneously dense, which may obscure small masses. Findings: Analyzed By CAD. No significant mass, suspicious microcalcification, or other discrete abnormality is seen. Overall Assessment: Negative, BI-RAD 1 Management: Screening Mammogram of both breasts in 1 year. Patient should continue monthly self-breast exams. A clinical breast exam by your physician is recommended on an annual basis. This exam should not preclude additional follow-up of suspicious palpable abnormalities. Note on Violeta scores and lifetime risk: 1. A Violeta score greater than 3% is considered moderate risk. If this is the case, consider specialist referral to assess eligibility for a risk reducing agent. 2. If overall lifetime risk for the development of breast cancer is 20% or higher, the patient may qualify for future screening with alternating mammogram and breast MRI. [facility], , 04/08/2025 4:13 PM. Electronically signed and approved by: Virgilio Kelley M.D. Radiologist
== END | disposition home or self-care (01) ==
LOC: RADMAMWWP 10:59
DX: Z12.31 Encounter for screening mammogram for malignant neoplasm of breast (principal); R92.333 Mammographic heterogeneous density, bilateral breasts; Z80.3 Family history of malignant neoplasm of breast
CPT/HCPCS: 77067

== ENCOUNTER 2025-04-14 01:49 | Emergency (ER) | payer OTHER ==
[2025-04-14 01:54] VITALS: RESP 18; TEMP 98.1
[2025-04-14] MEDS: SODIUM CHLORIDE 0.9% 1,000 ML IV STA (02:24)
[2025-04-14 02:27] LABS: Basophils # (A) 0.08 10*3/uL (0.00-0.10); Basophils % (A) 0.7 %; Eosinophils # (A) 0.16 10*3/uL (0.04-0.35); Eosinophils % (A) 1.3 %; HCT 38.8 % (37.2-46.3); HGB 13.6 g/dL (12.0-15.0); Lymphocytes # (A) 2.45 10*3/uL (0.90-5.00); Lymphocytes % (A) 20.2 %; MCH 30.6 pg (27.0-32.0); MCHC 35.1 g/dL (32.0-37.0); MCV 87.4 fL (80.0-97.0); Monocytes # (A) 0.87 10*3/uL (0.20-1.00); Monocytes % (A) 7.2 %; Neutrophils # (A) 8.52 10*3/uL (1.80-7.70); Neutrophils % (A) 70.1 %; Platelet Count 252 10*3/uL (140-440); RBC 4.44 10*6/uL (4.10-5.20); RDW 12.5 % (11.5-14.5); WBC 12.14 10*3/uL (4.50-10.00)
[2025-04-14 02:37] LABS: ALT 27 U/L (4-34); AST 32 U/L (14-36); African American GFR (CKD) >90 (>60 ml/min/1.73 sqM); Albumin 4.0 g/dL (3.5-5.0); Alkaline Phosphatase 97 U/L (38-126); Anion Gap 11 mmol/L; Blood Urea Nitrogen 14 mg/dL (7-17); Calcium 9.4 mg/dL (8.4-10.2); Carbon Dioxide 22 mmol/L (22-30); Chloride 106 mmol/L (98-107); Glucose 103 mg/dL (74-99); Non-African American GFR(CKD) >90 (>60 ml/min/1.73 sqM); Potassium 4.1 mmol/L (3.5-5.1); Sodium 139 mmol/L (137-145); Total Protein 6.6 g/dL (6.3-8.2)
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
[2025-04-14 03:38] VITALS: BP 136/99; PULSE 77
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
== END 2025-04-14 04:25 | disposition home or self-care (01) ==
LOC: EC 01:49
DX: R42 Dizziness and giddiness (principal); F17.290 Nicotine dependence, other tobacco product, uncomplicated; Z88.8 Allergy status to other drugs, medicaments and biological substances; Z04.1 Encounter for examination and observation following transport accident; V89.2XXA Person injured in unspecified motor-vehicle accident, traffic, initial encounter; Y92.410 Unspecified street and highway as the place of occurrence of the external cause
CPT/HCPCS: 36415; 71046; 80053; 84484; 85025; 93005; 96360; 99284

== ENCOUNTER → 2025-04-16 | Outpatient (CLI) | payer OTHER ==
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
== END | disposition home or self-care (01) ==
LOC: RADCTMAIN 17:41
DX: S06.0XAA Concussion with loss of consciousness status unknown, initial encounter (principal); V89.2XXA Person injured in unspecified motor-vehicle accident, traffic, initial encounter
CPT/HCPCS: 70450

== ENCOUNTER → 2025-04-17 | Outpatient (CLI) | payer OTHER ==
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
== END | disposition home or self-care (01) ==
LOC: RADMRIMAIN 12:26
DX: S06.0XAA Concussion with loss of consciousness status unknown, initial encounter (principal); R90.82 White matter disease, unspecified; G93.89 Other specified disorders of brain
CPT/HCPCS: 70551

== ENCOUNTER → 2025-04-30 | Outpatient (CLI) | payer OTHER ==
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
== END | disposition home or self-care (01) ==
LOC: RADCTMAIN 07:57
PROVIDERS: ATTEND Family Medicine
DX: R10.84 Generalized abdominal pain (principal); V89.2XXD Person injured in unspecified motor-vehicle accident, traffic, subsequent encounter
CPT/HCPCS: 74176

== ENCOUNTER → 2025-04-30 | Outpatient (CLI) | payer OTHER ==
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
== END | disposition home or self-care (01) ==
LOC: RADCTMAIN 08:03
DX: M54.16 Radiculopathy, lumbar region (principal); V89.2XXA Person injured in unspecified motor-vehicle accident, traffic, initial encounter; K44.9 Diaphragmatic hernia without obstruction or gangrene
CPT/HCPCS: 72128; 72131